=== PATIENT | male | born 1960 | race Caucasian/White ===

== ENCOUNTER → 2016-03-28 | Outpatient (CLI) | payer BC ==
[~2016-03-28] MED LIST: AMLO10TA2 PO; ASPI81TA85 PO; BISO5TAB5 PO; COUM2.5T11 PO; PERC5TAB6 PO
[2016-03-28 11:08] LABS: BASO % 0.6 % (0.0-1.0); EOS # 0.1 K/mm3 (0.0-0.50); EOS % 2.3 % (0.0-3.0); LARGE UNSTAINED CELL # 0.1 K/mm3 (0.0-0.4); LARGE UNSTAINED CELL % 2.3 % (0.0-4.0); LYMPH # 1.7 K/mm3 (1.5-4.5); MEAN CORPUSCULAR HEMOGLOBIN 30.2 pg (27.0-33.0); MEAN CORPUSCULAR HGB CONC 33.8 g/dl (32.0-36.5); MEAN CORPUSCULAR VOLUME 89.4 fl (80.0-96.0); MONO # 0.3 K/mm3 (0.0-0.8); MONO % 6.4 % (0.0-5.0); NEUTROPHILS # 3.2 K/mm3 (1.8-7.7); NEUTROPHILS % 59.4 % (36.0-66.0); PLATELET COUNT, AUTOMATED 190 k/mm3 (150-450); RED CELL DISTRIBUTION WIDTH 14.3 % (11.5-14.5); WHITE BLOOD COUNT 5.3 K/mm3 (4.0-10.0)
[2016-03-28 11:30] LABS: ALBUMIN 3.9 GM/DL (3.2-5.2); ALBUMIN/GLOBULIN RATIO 1.05 (1.00-1.93); ALKALINE PHOSPHATASE 69 U/L (45-117); ALT/SGPT 35 U/L (12-78); ANION GAP 5 MEQ/L (8-16); AST/SGOT 29 U/L (15-37); BILIRUBIN,TOTAL 0.3 MG/DL (0.2-1.0); BLOOD UREA NITROGEN 11 MG/DL (7-18); CALCIUM LEVEL 8.8 MG/DL (8.5-10.1); CARBON DIOXIDE LEVEL 31 MEQ/L (21-32); CHLORIDE LEVEL 107 MEQ/L (98-107); CHOLESTEROL LEVEL 192 MG/DL (<200); CREATININE FOR GFR 1.12 MG/DL (0.70-1.30); GLOMERULAR FILTRATION RATE > 60.0 (>56); GLUCOSE, FASTING 86 MG/DL (70-105); POTASSIUM SERUM 4.4 MEQ/L (3.5-5.1); SODIUM LEVEL 143 MEQ/L (136-145); TOTAL PROTEIN 7.6 GM/DL (6.4-8.2); TRIGLYCERIDES LEVEL 175 MG/DL (<150)
== END ==
LOC: M LAB 10:52
PROVIDERS: ATTEND Family Medicine
DX: I10 Essential (primary) hypertension (principal)

== ENCOUNTER 2017-09-21 06:50 | Day surgery (SDC) | payer BC ==
[2017-09-21] MEDS ORDERED: SIMETHICONE 40MG/0.6ML DROPS 30ML As Ordered (06:56)
[2017-09-21] MEDS ORDERED: PROPOFOL 200 MG/20 ML VIAL As Ordered ×3 (07:05→08:16)
[2017-09-21] MEDS ORDERED: LIDOCAINE 2% INJ 100 MG/5 ML SDV (FOR ANES.) As Ordered (07:05)
[2017-09-21] MEDS: LR 1,000 ML IV (07:06)
== END 2017-09-21 09:00 | disposition home or self-care (01) ==
LOC: M OPP 06:50
DX: Z12.11 Encounter for screening for malignant neoplasm of colon (principal); D12.0 Benign neoplasm of cecum; D12.4 Benign neoplasm of descending colon; D17.5 Benign lipomatous neoplasm of intra-abdominal organs; K57.30 Diverticulosis of large intestine without perforation or abscess without bleeding; K21.0 Gastro-esophageal reflux disease with esophagitis; K44.9 Diaphragmatic hernia without obstruction or gangrene; M12.9 Arthropathy, unspecified; Z91.89 Other specified personal risk factors, not elsewhere classified; Z96.652 Presence of left artificial knee joint
CPT/HCPCS: 45385

== ENCOUNTER 2017-11-02 06:41 | Day surgery (SDC) | payer BC ==
[2017-11-02] MEDS ORDERED: LIDOCAINE 2% INJ 100 MG/5 ML SYRINGE As Ordered (07:09)
[2017-11-02] MEDS ORDERED: PROPOFOL 200 MG/20 ML VIAL As Ordered ×3 (07:09→07:46)
[2017-11-02] MEDS ORDERED: fentaNYL 100 MCG/2 ML INJECTION (J3010) As Ordered (07:09)
[2017-11-02] MEDS: NS 1,000 ML IV (07:16)
== END 2017-11-02 08:25 | disposition home or self-care (01) ==
LOC: M OPP 06:41
DX: K21.0 Gastro-esophageal reflux disease with esophagitis (principal); K22.2 Esophageal obstruction; K22.8 Other specified diseases of esophagus; K44.9 Diaphragmatic hernia without obstruction or gangrene; K25.9 Gastric ulcer, unspecified as acute or chronic, without hemorrhage or perforation; R12 Heartburn; M19.90 Unspecified osteoarthritis, unspecified site; Z96.642 Presence of left artificial hip joint; Z79.899 Other long term (current) drug therapy; Z87.891 Personal history of nicotine dependence; Z80.1 Family history of malignant neoplasm of trachea, bronchus and lung; Z80.0 Family history of malignant neoplasm of digestive organs
CPT/HCPCS: 43235

== ENCOUNTER → 2018-04-04 | Outpatient (CLI) | payer BC ==
[~2018-04-04] MED LIST changes: -AMLO10TA2 PO; +AMLO10TA5 PO; -COUM2.5T11 PO; +COUM2.5T17 PO; +OMEP40CA2 PO; +PERC5TAB12 PO; -PERC5TAB6 PO; +SUCR1SUS PO
--- NOTE | 2018-04-04 14:09 | REP ---
Chest two views HISTORY: Cough Comparison: 10/25/2015 Parenchymal density is present in the left lower lobe consistent with an infiltrate. The right lung is clear. The heart is normal in size. The pulmonary vasculature is normal in appearance. The bony structure is intact. IMPRESSION: Left lower lobe infiltrate. Electronically Signed by Andres Lamas MD 04/04/2018 01:59 P
== END ==
LOC: M SMT 13:40
PROVIDERS: ATTEND Family Medicine
DX: R91.8 Other nonspecific abnormal finding of lung field (principal); R05 Cough

== ENCOUNTER 2018-04-25 09:38 | Inpatient (IN) | payer BC ==
[~2018-04-25] VITALS: Ht 180.3 cm; Wt 89.2 kg
[2018-04-25] VITALS (13 sets, daily range): BP systolic 106–154; BP diastolic 56–91
[2018-04-25] MEDS ORDERED: ALEV220C2 PO (09:48)
[2018-04-25] MEDS ORDERED: ASPI1TAB PO (09:48)
[2018-04-25] MEDS ORDERED: LEVO750T13 PO (09:48)
[2018-04-25] MEDS ORDERED: NS 2,860 ML in APPROPRIATE DILUENT 1 EA IV ONE (10:30)
[2018-04-25] MEDS ORDERED: PIPERACILLIN/TAZOBACTAM SOD 3.375 GM in D5W MINI-BAG PLUS 50 ML IV ONE (10:30)
--- NOTE | 2018-04-25 10:32 | REP ---
Chest x-ray: Two views. History: Dyspnea and cough. Comparison chest x-ray: April 04, 2018 and October 25, 2015. The March study showed left lower lobe infiltrate. Findings: Today's exam demonstrates extensive opacification of the left hemithorax due to a large left pleural effusion compressing the left lung. There is an air-fluid level near the apex posteriorly which may be parenchymal or pleural. The right lung is clear. Heart is not enlarged. Impression: Large left pleural effusion compressing the left lung and causing extensive opacification in the left hemithorax. This is a significant change from April 11, [address] study of the chest with IV contrast may provide additional information. Electronically Signed by Spencer Cardenas MD 04/25/2018 12:48 P
[2018-04-25 10:36] LABS: BASO # 0.1 10^3/uL (0.0-0.2); BASO % 0.4 % (0.0-1.0); EOS # 0.1 10^3/uL (0.0-0.50); EOS % 0.3 % (0.0-3.0); HEMATOCRIT 40.6 % (42.0-52.0); HEMOGLOBIN 12.6 g/dl (13.5-17.5); LYMPH # 1.3 10^3/uL (1.5-4.5); LYMPH % 6.4 % (24.0-44.0); MEAN CORPUSCULAR HEMOGLOBIN 27.5 pg (27.0-33.0); MEAN CORPUSCULAR VOLUME 88.5 fl (80.0-96.0); MONO # 1.2 10^3/uL (0.0-0.8); MONO % 5.9 % (0.0-5.0); NEUTROPHILS # 16.7 10^3/uL (1.8-7.7); NEUTROPHILS % 83.1 % (36.0-66.0); PLATELET COUNT, AUTOMATED 536 10^3/uL (150-450); RED BLOOD COUNT 4.59 10^6/uL (4.30-6.10)
[2018-04-25 10:49] LABS: ABG BASE EXCESS 2.5 (-2.0-2.0); ABG HCO3 26.1 MEQ/L (22.0-26.0); ABG O2 SATURATION 98.1 % (95.0-99.0); ABG PARTIAL PRESSURE CO2 36.9 mmHg (35.0-45.0); ABG PARTIAL PRESSURE O2 99.7 mmHg (75.0-100.0); ABG STANDARD HCO3 26.7 MEQ/L (22.0-26.0); ABG TOTAL CO2 27.3 MEQ/L (22.0-29.0); ABG pH (ARTERIAL) 7.468 UNITS (7.350-7.450)
[2018-04-25] MEDS ORDERED: OMEP40CA2 PO (10:52)
[2018-04-25 11:04] LABS: INFLUENZA A AMPLIFICATION NEGATIVE (NEGATIVE); INFLUENZA B AMPLIFICATION NEGATIVE (NEGATIVE)
[2018-04-25 11:45] LABS: INR 1.41; PROTHROMBIN TIME 17.5 SECONDS (12.1-14.4)
[2018-04-25 11:46] LABS: PARTIAL THROMBOPLASTIN TIME 44.4 SECONDS (25.4-37.6)
[2018-04-25 12:15] LABS: ALBUMIN 1.6 GM/DL (3.2-5.2); ALT/SGPT 31 U/L (12-78); AMYLASE 31 U/L (25-115); BILIRUBIN,DIRECT 0.3 MG/DL (0.0-0.2); BILIRUBIN,TOTAL 0.5 MG/DL (0.2-1.0); BLOOD UREA NITROGEN 17 MG/DL (7-18); CALCIUM LEVEL 8.1 MG/DL (8.5-10.1); CARBON DIOXIDE LEVEL 29 MEQ/L (21-32); CHLORIDE LEVEL 102 MEQ/L (98-107); CREATININE FOR GFR 0.97 MG/DL (0.70-1.30); GLOMERULAR FILTRATION RATE > 60.0 (>56); GLUCOSE, FASTING 98 MG/DL (70-100); POTASSIUM SERUM 4.3 MEQ/L (3.5-5.1); SODIUM LEVEL 141 MEQ/L (136-145); TOTAL PROTEIN 6.6 GM/DL (6.4-8.2); TROPONIN I < 0.02 NG/ML (< 0.10)
[2018-04-25 12:16] LABS: CK-MB VALUE MASS < 1.0 NG/ML (<3.6); CPK CREATINE PHOSPHOKINASE 17 U/L (39-308); MB/CK RELATIVE INDEX 5.88 (< OR =4)
[2018-04-25] MEDS ORDERED: ISOVUE-370 76% 100ML VIAL (Q9967) As Ordered ONE (12:19)
[2018-04-25] MEDS ORDERED: MORPHINE 4 MG/ML 1ML VIAL/SYRINGE (J2270) IV PRN (13:00)
[2018-04-25] MEDS ORDERED: BISACODYL 5 MG TAB PO PRN (13:00)
[2018-04-25] MEDS ORDERED: BISACODYL 10 MG SUPP PR PRN (13:00)
[2018-04-25] MEDS ORDERED: FLUMAZENIL 0.5 MG/5 ML VIAL IV STA (13:26)
[2018-04-25] MEDS ORDERED: LIDOCAINE 1% MDV 20ML VIAL SC SCH (13:30)
[2018-04-25] MEDS ORDERED: MIDAZOLAM INJ 2 MG/2 ML VIAL (J2250) IV ONE ×3 (13:30→17:00)
--- NOTE | 2018-04-25 13:43 | REP ---
CT ANGIOGRAM CHEST: TECHNIQUE: Axial contrast enhanced images from the thoracic inlet to the upper abdomen using 100 mL Isovue 370 intravenous contrast material with multiplanar reformations. There is no CT evidence of pulmonary embolism. There is no thoracic aortic aneurysm or dissection. The heart is not significantly enlarged. There is a huge air and fluid collection in the left pleural space consistent with a huge left-sided empyema. There is adjacent compressive atelectasis of the left lung. Right lung demonstrates no infiltrate or pleural effusion. There is a small amount of left pericardial fluid. There are several small lymph nodes in the AP window. No axillary adenopathy is seen. Visualized upper abdominal structures are unremarkable. IMPRESSION: Huge left empyema with adjacent compressive left lung atelectasis. No CT evidence of pulmonary embolism. Small amount of left pericardial fluid. Electronically Signed by Rizwan Falk MD 04/26/2018 10:08 A
--- NOTE | 2018-04-25 13:57 | PHACANCOPD ---
PHARMACY VANCOMYCIN DOSING Pt Demographics Demographics Patient Age:58 , Weight:95.450 , Gender: male Adjusted Body Weight Date: 04/25/18, Adjusted Body Weight: Kg Events Past 24 Hours Events Past 24 Hours: YES: Elevation in WBC Vancomycin Vancomycin indication: FAILED OUTPT ABX X 2, HAS PNEUMONIA EMPYEMA Vancomycin Target Ranges: 15-20 mcg/ml Vancomycin Load Y/N: Yes Load Dose Date Time Vancomycin Load Dose: 2g Date: 04/25/18 Time: 1400 Vancomycin Dose Date: 04/25/18. Current Vancomycin Dose: [1g IV Q8H] Intermittent Dosing?: No Labs Labs Item Value Date Time White Blood Count 20.0 10^3/uL H 04/25/18 1024 Creatinine 0.97 MG/DL 04/25/18 1121 Glomerular Filtration Rate > 60.0 04/25/18 1121 Lactic Acid Level 2.5 MMOL/L *H 04/25/18 1025 C-Reactive Protein, Quantitative 29.90 MG/DL H 04/25/18 1121 Micro Microbiology 04/25/18 Blood Culture, Received Pending 04/25/18 Blood Culture, Received Pending 04/25/18 Blood Culture, Received Pending 04/25/18 Gram Stain, Received Pending 04/25/18 Sputum Culture, Received Pending Creatinine Clearance Date:04/25/18. Est Creatinine Clearance: [~88ml/min]. Pending Labs Vancomycin trough level scheduled 04/26/18 @1300 Assessment and Plan Maintaining Current Dose?: Yes Reason for dose change: No Dose Change Pharmacist Note Pharmacist Note Date: 04/25/18. Pharmacist note: Day #1 empiric vancomycin therapy initiated with a 2g loading dose followed by a maintenance regimen of 1g IV Q8H for the treatment of pneumonia/empyema - aiming for a goal trough of 15-20mcg/ml. The patient is s/p outpatient antibiotic therapy with oral levaquin for the treatment of pneumonia with no improvement. WBC, LA, and CRP are all elevated. T he patient is currently afebrile. CXR today shows "Large left pleural effusion compressing the left lung and causing extensive opacification in the left hemithorax. This is a significant change from April 11, 2018 prior study." Blood and sputum cultures are pending. MRSA screen pending. The patient has no PMH of MRSA or vanco use here at [facility]. H&P is currently pending. A vancomycin trough has been scheduled to be drawn tomorrow, 04/26/18, at 1300 prior to the 4th dose. We will continue to monitor and will make dose adjustments if needed. JOELLEN GRIMALDO PHARMACY Apr 25, 2018 13:57
[2018-04-25] MEDS ORDERED: MIDAZOLAM INJ 2 MG/2 ML VIAL (J2250) As Ordered ONE ×2 (14:31→14:32)
[2018-04-25] MEDS ORDERED: FLUMAZENIL 0.5 MG/5 ML VIAL As Ordered ONE (14:31)
[2018-04-25] MEDS ORDERED: LIDOCAINE 1% MDV 20ML VIAL As Ordered ONE (14:32)
--- NOTE | 2018-04-25 14:52 | HPE ---
DATE OF ADMISSION: 04/25/2018 CHIEF COMPLAINT: Shortness of breath and fevers. HISTORY OF PRESENT ILLNESS: Mr. King is a 58-year-old male who presented to the emergency department after recently being treated for pneumonia with continued shortness of breath. The patient states that he feels that he has had respiratory problems since around Su time with a cough that has been going for over a month. He went to his primary care provider in March and had a chest x-ray, which showed a left lower lobe infiltrate. The patient was treated for pneumonia with doxycycline. He states he initially started to feel better on the doxycycline but then felt that he was improving any further. After he finished a course of doxycycline, he returned to his primary care provider and was placed on Levaquin about a week ago. He states he has not felt any better on the Levaquin. He has had fevers as recently as last week, continues to have shortness of breath and cough that he states is productive. He has been bringing up some purulent sputum at times. He has noted fevers but denies shaking chills. He denies any unexplained weight loss. He states that he has not been eating. He does not feel hungry. He denies any other significant gastrointestinal symptoms. Denies any nausea, vomiting, diarrhea or constipation. Denies any blood in stool. The patient denies any previous history of respiratory issues. Denies any recurrent pneumonia or bronchitis issues. He is a former smoker who smoked a pack a day for about 40 years and quit about 3 years ago. The patient describes overall health as good. He is on omeprazole for gastroesophageal reflux disease and otherwise does not take any other medications except for a baby aspirin. He states he has been followed for elevated blood pressure of the past but is not on any blood pressure medications and currently his blood pressure is good. 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 He denies any other exposures to other people with respiratory issues. He denies any history of tuberculosis. REVIEW OF SYSTEMS The patient has noted some fevers but denies shaking chills. Denies unexplained weight loss. HEENT: The patient denies headaches or dizziness. Denies sore throats or epistaxis. The patient denies any neck pain. CARDIOVASCULAR: The patient denies chest pain or palpitations. Denies any history of coronary artery disease. PULMONARY: See above. GASTROINTESTINAL The patient denies nausea, vomiting, diarrhea, constipation, abdominal pain, hematemesis, blood in stool. GENITOURINARY: The patient denies any urinary symptoms. ENDOCRINE: The patient denies history of diabetes or thyroid problems. MUSCULOSKELETAL: The patient denies any upper or lower extremity weakness or tremors. SKIN: Patient denies any rashes. PAST MEDICAL HISTORY: 1. Reflux. 2. History of elevated blood pressure. 3. History of smoking, quit 3 years ago. 4. History of left total hip replacement. 5. History of right rotator cuff repair. SOCIAL HISTORY: The patient lives with his . He works as a car hauler. The patient has a history of smoking. He smoked a pack a day for 40 years quitting 3 years ago. He also chewed tobacco and quit that 3 years ago as well. The patient has an occasional alcoholic beverage. The patient denies any illicit drug use. FAMILY HISTORY The patient's mother of lung cancer. The patient's father of stomach cancer. MEDICATIONS: - aspirin 81 mg - omeprazole ALLERGIES: NO KNOWN DRUG ALLERGIES. PHYSICAL EXAMINATION Vitals: Blood pressure is 124/78, heart rate 86, temperature 96.9, oxygen saturation 93%, respiratory rate 20. GENERAL: The patient is alert and oriented times three. He is speaking in complete sentences. He is coughing throughout the exam. HEENT: Head is normocephalic, atraumatic. Moist mucous membranes. Neck is supple. No cervical lymphadenopathy. No jugular venous distention (JVD). Trachea is midline. PULMONARY: Diminished breath sounds over the left lower lung with E/A egophony at the left base and decreased tactile fremitus on the left. There is dullness to percussion on the left to about two-thirds of the way up. HEART: Regular rate and rhythm. S1, S2 no murmurs. ABDOMEN: Positive bowel sounds, soft, nontender. No rebound or guarding. EXTREMITIES : No clubbing, cyanosis or edema. SKIN: Skin is warm and dry. MUSCULOSKELETAL: No unilateral weakness. No lower extremity edema. Electrocardiogram (EKG) shows a right bundle block branch block, looks similar to prior EKG from 2016. LABORATORY DATA: ABG pH is 7.468, pCO2 is 36.9, pO2 is 99.7, HCO3 is 26.1. WBC 20.0, hemoglobin 12.6, hematocrit 40.6, platelets 536, PT 17.5, INR 1.41, PTT 4.4. Sodium 141, potassium 4.3, chloride 102, carbon dioxide 29, BUN 17, creatinine 0.97, glucose 98, calcium 8.1, total bili 0.5, direct bili 0.3, AST 25, ALT 31, alkaline phosphatase 174, CK 17, CK-MB less than 1.0, CK-MB relative index 5.88. Troponin I less than 0.02, CRP 29.90, total protein 6.6, albumin 1.6, amylase 31, influenza A and B were negative. Sputum culture pending. Blood cultures times two pending. Chest x-ray shows a large left pleural effusion with extensive opacification of the left lung. Chest x-ray from 04/04/2018 was also reviewed and showed a left lower lobe infiltrate. Chest CT from today shows very large pleural effusion of left lung that appears loculated to the left upper lobe with a rind. There is a possible air-fluid level. ASSESSMENT/PLAN: 1. Pleural effusion. Most likely empyema, malignancy also cannot be ruled out at present time, although the patient's symptoms and the CT findings do suggest infection. Chest tube will be placed. Dr. Elkins has been consulted and will place a chest tube. Judging from the chest CT, which does show a rind around the pleural effusion, it is likely that the effusion has been there for sometime. The patient may be left with chronic scarring, even with drainage. The patient is placed on the Zosyn and vancomycin because he has failed two outpatient antibiotics with doxycycline and Levaquin. 2. Sepsis. Most likely secondary to an empyema and a prior pneumonia. The patient had been on and failed two different outpatient antibiotics, including doxycycline and Levaquin. Therefore he will be started on IV Zosyn and IV vancomycin. Sputum and blood cultures are currently pending. 3. Gastroesophageal reflux disease (GERD). The patient will be placed on GI prophylaxis with Protonix. He is on omeprazole as an outpatient. 4. Deep vein thrombosis (DVT) prophylaxis. We will order TEDs and sequential compression device (SCD). Plan will be to start heparin after chest tube is placed.
[2018-04-25] MEDS: NS 1,000 ML IV SCH ×3 (14:59→17:54)
[2018-04-25] MEDS ORDERED: VANCOMYCIN HCL 1,000 MG, VIAL MATE ADAPTER 1 EACH in D5W 250 ML IV ONE (15:00)
[2018-04-25] MEDS ORDERED: KETOROLAC 30 MG/ML VIAL (J1885) As Ordered ONE (15:19)
[2018-04-25] MEDS ORDERED: KETOROLAC 30 MG/ML VIAL (J1885) IV ONE (15:45)
[2018-04-25] MEDS: VANCOMYCIN HCL 1,000 MG, VIAL MATE ADAPTER 1 EACH in D5W 250 ML IV SCH ×2 (16:04→21:54)
[2018-04-25 16:16] LABS: LDH LACTATE DEHYDROGENASE 140 U/L (87-241)
[2018-04-25 16:18] LABS: PH BODY FLUID 6.985 UNITS (NOT ESTABLISHED); SOURCE, BODY FLUID pH PLEURAL
[2018-04-25 16:19] LABS: APPEARANCE, BODY FLUID HAZY (CLEAR); PLEURAL FL COLOR YELLOW (COLORLESS); SOURCE, BODY FLUID PLEURAL
[2018-04-25 16:45] LABS: SOURCE, BODY FLUID ALBUMIN PLEURAL; SOURCE, BODY FLUID TOT PROTEIN PLEURAL; TOTAL PROTEIN, BODY FLUID 4.9 G/DL (NOT ESTABLISHED)
--- NOTE | 2018-04-25 16:47 | CR ---
DATE OF CONSULTATION: 04/25/2018 The patient is seen at the request of Dr. Barrett for a pleural effusion and probable empyema. HISTORY OF THE PRESENT ILLNESS: The patient is a 58-year-old white male whose story starts about 3 weeks ago when he started to develop a cough and sputum production. He was seen by his primary care doctor who placed him on doxycycline. Approximately 10 days later, he still had his cough with sputum production and started to develop chest discomfort in the left lateral chest. 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 He has become more progressively short of breath and has experienced more chest pain. Chest x-ray was taken today which then showed a left dense opacity. His temperature was approximately 101 about 3 days ago. He has had a decreased appetite. He thinks he has lost maybe a few pounds of weight just because of his decreased appetite over the past 3 weeks. There is no dysphagia. He has also brought up what sounds to be pink blood-tinged sputum occasionally but mostly greenish to yellow. PAST MEDICAL HISTORY: Gastroesophageal reflux disease. PAST SURGICAL HISTORY: Hip replacement on the left side. Rotator cuff repair on the right side. MEDICATIONS AT HOME: - Aleve 220 mg as needed for pain every 6 hours - aspirin 81 mg daily - levofloxacin 750 mg daily - omeprazole 40 mg daily - After the course of doxycycline, the Levaquin was started. TRAVEL HISTORY: He has been to [place]. 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 No travel to the [facility]. EXPOSURES: No dogs, pets, or birds at home. No exposure to tuberculosis. HABITS: Smoked one pack per day up until 2014. He then quit. He has about two beers a week, and there are no illicit drugs. FAMILY HISTORY: Noncontributory. ALLERGIES: None. REVIEW OF SYSTEMS: CONSTITUTIONAL: See history of the present illness. EYES: Without diplopia, without amaurosis fugax, without prior jaundice. NOSE: Without epistaxis. MOUTH: Has his own teeth. RESPIRATORY: See history of the present illness. CARDIAC: See history of the present illness. No history of myocardial infarctions or intermittent claudication. No edema of his lower legs. GASTROINTESTINAL (GI): Without nausea, vomiting, diarrhea, constipation, melena, hematochezia. Without hematemesis or abdominal pain. GENITOURINARY: Without dysuria or hematuria or history of renal stones. ENDOCRINE: Without diabetes, without thyroid disease. PSYCHIATRIC: Without anxieties, depressions, or psychoses. NEUROLOGIC: Without paresthesias, paralyses or seizures. HEMATOLOGIC: Without prolonged bleeding times. PHYSICAL EXAMINATION: VITAL SIGNS: Show a temperature of 98.0 with a pulse of 93 and is sinus rhythm, respiratory rate of 20 without the use of accessory muscles who is 95% saturated on room air and whose blood pressure is 154/91. A well-developed, well-nourished white male in no acute distress. HEAD: Normocephalic. EYES: Pupils equal, round and reactive to light. Extraocular motor intact. Sclerae nonicteric. NOSE: Without deformity. MOUTH: Shows his mucous membranes to be pink and moist. Lips and commissures without lesions. There is no thrush. Teeth are in good repair. NECK: Neck is supple. There is no jugular venous distention. No subcutaneous emphysema. Trachea is midline. There is no lymphadenopathy or thyromegaly. LUNGS: Show markedly decreased breath sounds on the left side with a dull percussion note on the left side. He has full E to A egophony at the left base to the left mid lung field. Right lung shows normal vesicular sounds. CARDIAC: Cardiac exam is without murmurs, clicks, gallops or rubs. I cannot feel his point of maximum impulse (PMI). S1, S2 are normal. ABDOMEN: Soft, nontender. Bowel sounds are positive. There is no hepatomegaly. No costovertebral angle (CVA) tenderness. EXTREMITIES: Show no pretibial edema. No calf tenderness. No differential swelling of the upper extremities. SKIN: Warm, dry and perfused without cyanosis or mottling, including that of the nail beds and the knees. PULSES: Show 2+ dorsalis pedis, 2+ carotid upstrokes without bruits. NEUROLOGIC: Shows II-XII intact along with gross motor and gross sensation intact. Gait is not tested. PSYCHIATRIC: Shows him to be awake and alert, oriented times three with appropriate mood and affect and conversational. His white count is 20.0 with a hemoglobin and hematocrit of 12.6 and 40.6 respectively, and a platelet count of 536. Differential shows 83% neutrophils, 6% lymphocytes, 5% monocytes. There are no immature forms. No toxic granulations. His blood gases show a pH of 7.46, a pCO2 of 36, and a pO2 of 99 with a base excess of 2.5. Electrolytes are normal with a BUN and creatinine of 0.97 and 60. His lactic acid is 2.5. Calcium is 8.1 with a glucose of 98. AST and ALT are normal. Troponins are less than 0.02 and his albumin is 1.6. Amylase is 31. His PT/INR is 17.5 and 1.41 respectively with a PTT of 44 seconds. His chest x-ray today shows complete opacification of the left lower hemithorax. Lateral film shows fluid two-thirds of the way up the chest, mostly posteriorly. The right lung looks clear without infiltrates with a sharp costophrenic angle. CT angio of his chest confirms a large amount of fluid in the left chest. It looks heterogeneous and is probably pus. There is right lower lobe lung compression. There may be a loculation in the apex of the cupola. I do not see lymphadenopathy. There is no pulmonary embolism. Right adrenal has a normal configuration as does the left adrenal. Liver is without lesions. I see some emphysematous changes but very few in the upper lobes. I do not see bronchiectasis. IMPRESSION: 1. Probable right lower lobe pneumonia. 2. Probable empyema. 3. Gastroesophageal reflux disease. PLAN AND DISCUSSION: I will place a chest tube and drain him. Hopefully we will be able to drain the majority of his fluid, although he may need a TPA pleurolysis to get the rest of it. I will take a post-tube chest x-ray to see if the lung expands to the chest wall. I have a sinking feeling that it might not, and it might be encased in a rind. If it is and does not expand by tomorrow, I will do a TPA pleurolysis. Will send the results off for the requisite hematologies, cytologies, bacteriologies, and chemistries.
--- NOTE | 2018-04-25 16:50 | REP ---
Portable chest x-ray: Single view: History: Chest tube insertion. Comparison study is from earlier this date. Findings: Left chest tube has been inserted in the left base. There is incomplete reexpansion of the left lower lobe. There is lateral pleural air collection adjacent to the chest tube insertion site. Pleural thickening is noted here. Some pleural thickening is seen along the superolateral left thorax as well. Right lung remains clear. Impression: Incomplete reinflation of the left lung post left chest tube. Decreased left pleural effusion. Small left pneumothorax. Electronically Signed by Spencer Cardenas MD 04/25/2018 04:53 P
[2018-04-25] MEDS ORDERED: LIDOCAINE 1% MDV 20ML VIAL SC ONE ×2 (17:00)
[2018-04-25 17:09] LABS: AMYLASE, BODY FLUID 24 U/L (NOT ESTABLISHED); CHOLESTEROL, BODY FLUID < 50 MG/DL (NOT ESTABLISHED); LDH, BODY FLUID 6669 U/L (NOT ESTABLISHED); SOURCE, BODY FLUID AMYLASE PLEURAL; SOURCE, BODY FLUID CHOL PLEURAL; SOURCE, BODY FLUID GLUCOSE PLEURAL; SOURCE, BODY FLUID LDH PLEURAL; SOURCE, BODY FLUID TRIG PLEURAL; TRIGLYCERIDE, BODY FLUID 53 MG/DL (NOT ESTABLISHED)
[2018-04-25] MEDS: PERCOCET 5MG/325MG TAB PO PRN (17:28)
[2018-04-25] MEDS ORDERED: NS 1,000 ML IV ONE (18:00)
[2018-04-25] MEDS: PIPERACILLIN/TAZOBACTAM SOD 3.375 GM in D5W MINI-BAG PLUS 50 ML IV SCH (18:36)
--- NOTE | 2018-04-25 19:46 | ECGEPIP ---
Stationary ECG Study [facility] - ED Test Date: 2018-04-25 Pat Name: LITO GAVIN Department: Room: - Gender: M Poultry Dresser: : 1960 Requested By: Cata Crow Order Number: [id number] Reading MD: Cata Crow Measurements Intervals [place] Rate: 92 P: 30 [place]: 136 QRS: -57 QRSD: 144 T: 78 QT: 383 QTc: 475 Interpretive Statements SINUS RHYTHM RIGHT BUNDLE BRANCH BLOCK LAD LEFT ANTERIOR FASCICULAR BLOCK POSSIBLE SEPTAL MYOCARDIAL INFARCTION, OF INDETERMINATE AGE CW 10/25/[address] T WAVE CHANGES Electronically Signed On 04-25-2018 19:46:19 EST by Cata Crow
[2018-04-26] VITALS: BP 111/65
[2018-04-26] MEDS: PIPERACILLIN/TAZOBACTAM SOD 3.375 GM in D5W MINI-BAG PLUS 50 ML IV SCH ×4 (00:30→18:33)
[2018-04-26] MEDS: PERCOCET 5MG/325MG TAB PO PRN ×4 (00:31→21:21)
[2018-04-26 04:00] VITALS: BP 120/71
[2018-04-26 04:54] LABS: HEMATOCRIT 34.9 % (42.0-52.0); MEAN CORPUSCULAR HEMOGLOBIN 27.4 pg (27.0-33.0); MEAN CORPUSCULAR HGB CONC 30.1 g/dl (32.0-36.5); MEAN CORPUSCULAR VOLUME 91.1 fl (80.0-96.0); RED BLOOD COUNT 3.83 10^6/uL (4.30-6.10); WHITE BLOOD COUNT 14.9 10^3/uL (4.0-10.0)
[2018-04-26 04:59] LABS: HEMOGLOBIN 10.5 g/dl (13.5-17.5); PLATELET COUNT, AUTOMATED 362 10^3/uL (150-450)
[2018-04-26 05:18] LABS: BLOOD UREA NITROGEN 16 MG/DL (7-18); CALCIUM LEVEL 7.6 MG/DL (8.5-10.1); CARBON DIOXIDE LEVEL 27 MEQ/L (21-32); CHLORIDE LEVEL 104 MEQ/L (98-107); CREATININE FOR GFR 0.93 MG/DL (0.70-1.30); GLOMERULAR FILTRATION RATE > 60.0 (>56); GLUCOSE, FASTING 103 MG/DL (70-100); POTASSIUM SERUM 4.1 MEQ/L (3.5-5.1); SODIUM LEVEL 137 MEQ/L (136-145)
[2018-04-26] MEDS: VANCOMYCIN HCL 1,000 MG, VIAL MATE ADAPTER 1 EACH in D5W 250 ML IV SCH ×3 (05:51→21:19)
[2018-04-26 08:00] VITALS: BP 116/74
--- NOTE | 2018-04-26 08:27 | REP ---
A PA and lateral chest: Comparisons are the PA and lateral chest dated 04/25/2018 at 10:05 a.m. and the portable chest dated 04/25/2018 at 03:49 p.m. There is a left thoracotomy tube, unchanged from the comparison portable chest. There is a pneumothorax along the left lateral chest wall, unchanged, possibly loculated. There is focal increased radiodensity inferiorly in the left lung, possibly atelectasis. The remainder of the left lung is diffusely mildly opacified, possibly diffuse atelectasis. The right lung is clear. Cardiac size normal. The ever, mediastinum, skeletal structures are unremarkable. Impression: No significant change from the portable chest of 04/25 2018 at 03:49 p.m.. Electronically Signed by Rizwan Doty MD 04/26/2018 08:18 A
[2018-04-26] MEDS ORDERED: ALTEPLASE 2 MG/2 ML VIAL (J2997 PER 1MG) XX ONE (08:30)
[2018-04-26] MEDS: ENOXAPARIN 40 MG/0.4 ML SYRINGE (J1650) SC SCH (08:45)
[2018-04-26] MEDS ORDERED: FLUBLOK(EGG FREE)(QUAD)INFLUENZA VACC 0.5ML SYRINGE (90682)18YRS&OLDER IM ONE (09:00)
--- NOTE | 2018-04-26 09:20 | REP ---
CT CHEST WITHOUT CONTRAST: HISTORY: Evaluate status empyema. Comparison is made with chest CT study obtained before chest tube drainage on April 25, 2018. CT FINDINGS: A left chest tube is seen in place posteriorly. The previously noted empyema cavity has been largely evacuated. There is some moderate amount of a multiloculated air, a small quantity of fluid, and fairly extensive visceral and parietal pleural thickening seen throughout the left pleural space. There is some consolidation with air bronchograms in the left lower lobe anterolaterally and to a lesser extent in the lingula. There is fissural thickening along the major fissure. An interstitial infiltrate is seen in the left upper lobe superiorly. There is a small pericardial effusion. This has increased somewhat from the CT study April 25, 2018. There are scattered normal-sized mediastinal lymph nodes. The right lung is clear. IMPRESSION: Left empyema cavity largely evacuated. Some pleural air and extensive visceral and parietal pleural thickening seen. Areas of consolidation left lower lobe and left upper lobe. Pericardial effusion slightly increased. Electronically Signed by Spencer Cardenas MD 04/26/2018 11:07 A
--- NOTE | 2018-04-26 09:31 | RO ---
DATE OF PROCEDURE: 04/25/2018 PREPROCEDURE DIAGNOSIS: Left pleural effusion. POSTPROCEDURE DIAGNOSIS: Empyema. PROCEDURE: Insertion of left lateral chest tube. SURGEON: Ambrose Elkins MD COLD HEADER OPERATOR: ANESTHESIA: FINDINGS: The chest drained 2500 mL of cloudy opaque fluid. It was sent for cultures, hematologies, cytologies, and chemistries. DESCRIPTION OF PROCEDURE: Under satisfactory moderate sedation achieved with 4 mg of Versed, the patient was prepped and draped in the usual sterile fashion. Incision was made in the midclavicular line at approximately the eighth intercostal space. A tunnel was created in the chest without difficulty and a #24 chest tube placed without difficulty. The above findings were noted. The chest tube was secured to the chest wall with #2 [place] suture. The patient tolerated the procedure well, and a chest x-ray is pending.
--- NOTE | 2018-04-26 11:31 | CCN ---
DATE: 04/26/2018 Mr. King seen in PCU. He is sitting up in bed with a chest tube in place. He states since the chest tube was placed he does feel better and he states he is feeling better. He states his appetite has been a little bit better as well. He denies fevers or chills. His white count is improving today and is 14.9, which is decreased from 20 yesterday. He is on Zosyn and vancomycin. PHYSICAL EXAMINATION: VITALS: Temperature is 96.4, pulse 71, respiratory rate 20, blood pressure is 116/74, pulse ox 93%. GENERAL: The patient is alert and oriented times three. He speaks in complete sentences. HEENT: Head is normocephalic, atraumatic. Moist mucous membranes. NECK: Neck is supple. No cervical lymphadenopathy. No JVD. Trachea is midline. CARDIAC: Regular rate and rhythm. S1-S2, no murmurs. PULMONARY: Dullness to percussion over the left lower lobe going up about nursing home on the left. There is an expiratory squeak heard over the left lower lobe with some radiation throughout the chest. ABDOMEN: Soft and nontender. EXTREMITIES: No clubbing, cyanosis or edema. SKIN: Warm and dry. LABORATORY DATA: WBC 14.9, hemoglobin 10.5, hematocrit 34.9, platelets 362. Sodium is 137, potassium 4.1, chloride is 104, carbon dioxide is 27, BUN 16, creatinine 0.93, glucose 103, calcium 7.6. Pleural fluid pH 6.985, WBC of 40,480, RBC 17, mononuclear percent 32.4, polymorphonuclear percent 67.6, glucose less than 1, total protein is 4.9, albumin 1.5, LDH 6669, amylase 24, cholesterol less than 50, triglycerides 53, color yellow, appearance hazy. IMAGING STUDIES: Chest CT from today 04/26/2018 shows chest tube in place on the left. There is a left empyema with some pleural air trapping and visceral and parietal pleural thickening. There is areas of consolidation in the left lower lobe and left upper lobes. ASSESSMENT/PLAN: 1. Empyema. The patient has empyema. Dr. Elkins is following and managing the patient's chest tube that he placed to yesterday. Chest CT does show that the lung is not fully expanded therefore Dr. Elkins plans on TPA pleurolysis. The patient is on antibiotics. Today is day 2 of vancomycin and Zosyn. His white count is improved on the antibiotics and after chest tube placement. Continue antibiotics. Pleural fluid cultures are pending.
[2018-04-26 12:00] VITALS: BP 116/64
--- NOTE | 2018-04-26 14:58 | PHACANCOPD ---
PHARMACY VANCOMYCIN DOSING Pt Demographics Demographics Patient Age:58 , Weight:98.200 , Gender: male Adjusted Body Weight Date: 04/25/18, Adjusted Body Weight: Kg Vancomycin Vancomycin indication: FAILED OUTPT ABX X 2, HAS PNEUMONIA EMPYEMA Vancomycin Target Ranges: 15-20 mcg/ml Vancomycin Load Y/N: Yes Load Dose Date Time Vancomycin Load Dose: 2g Date: 04/25/18 Time: 1400 Vancomycin Dose Date: 04/25/18. Current Vancomycin Dose: [1g IV Q8H] Intermittent Dosing?: No Labs Micro Microbiology 04/25/18 Blood Culture - Preliminary, Resulted No growth after 24 hours . All specim... 04/25/18 Blood Culture - Preliminary, Resulted No growth after 24 hours . All specim... 04/25/18 Blood Culture - Preliminary, Resulted No growth after 24 hours . All specim... 04/25/18 Acid Fast Stain, Received Pending 04/25/18 Mycobacterial Culture, Received Pending 04/25/18 Fungal Smear, Received Pending 04/25/18 Fungal Culture, Received Pending 04/25/18 Gram Stain - Final, Resulted 04/25/18 Anaerobic Culture, Resulted Pending 04/25/18 Body Fluid Culture, Received Pending 04/25/18 MRSA Screen, Received Pending 04/25/18 Gram Stain - Final, Resulted 04/25/18 Sputum Culture, Resulted Pending Creatinine Clearance Date:04/25/18. Est Creatinine Clearance: [~88ml/min]. Pending Labs Vancomycin trough level scheduled 04/26/18 @1300 Assessment and Plan Maintaining Current Dose?: Yes Reason for dose change: No Dose Change Pharmacist Note Pharmacist Note 04/26/18: Day #2 vancomycin therapy. Trough level today resulted therapeutic at 17.3mcg/ml. Scr remains stable at 0.93 today from 0.97 yesterday, as does BUN. We will maintain the patient on his current regimen of 1g IV Q8H for the tr eatment of empyema. We will continue to monitor and schedule further levels accordingly. Date: 04/25/18. Pharmacist note: Day #1 empiric vancomycin therapy initiated with a 2g loading dose followed by a maintenance regimen of 1g IV Q8H for the treatment of pneumonia/empyema - aiming for a goal trough of 15-20mcg/ml. The patient is s/p outpatient antibiotic therapy with oral levaquin for the treatment of pneumonia with no improvement. WBC, LA, and CRP are all elevated. The patient is currently afebrile. CXR today shows "Large left pleural effusion compressing the left lung and causing extensive opacification in the left hemithorax. This is a significant change from April 11, 2018 prior study." Blood and sputum cultures are pending. MRSA screen pending. The patient has no PMH of MRSA or vanco use here at [facility]. H&P is currently pending. A vancomycin trough has been scheduled to be drawn tomorrow, 04/26/18, at 1300 prior to the 4th dose. We will continue to monitor and will make dose adjustments if needed. JOELLEN GRIMALDO PHARMACY Apr 26, 2018 14:58
[2018-04-26 16:00] VITALS: BP 154/88
--- NOTE | 2018-04-26 16:04 | IPN ---
DATE: 04/26/2018 Mr. King is doing markedly better today. He can breathe and the pain is much better. The chest tube site pain is being well controlled with analgesics. His vital signs show a maximum temperature (t-max) of 98.0 with a heart rate that ranges between 71 and 78 in a sinus rhythm, respiratory rate 18 to 20 without the use of accessory muscles, who is 90 to 94% saturated on room air, and whose blood pressure is ranging between 116/74 to 120/71. His intake and output for the past 24 hours has been recorded as 5830 in and 1200 out for a positivity of 4630 mL. He has put 550 mL out of the chest tube. In the last 14 hours, he has put out 115 mL. There is no air leak. PHYSICAL EXAMINATION: LUNGS: He has coarse rhonchi in the left lower hemithorax. I also hear a succussion splash, percussion note is full to the diaphragm on both sides. Right lung shows normal vesicular sounds. CARDIAC EXAM: Without murmurs, clicks, gallops or rubs. I cannot feel his point of maximum impulse (PMI) through his obesity. S1, S2 are normal. ABDOMEN: Soft, nontender but tympanitic and distended. No costovertebral angle tenderness. Bowel sounds are positive. EXTREMITIES: Show no pretibial edema. No calf tenderness. No differential swelling of the upper extremities. SKIN: Warm, dry and perfused without cyanosis or mottling, including that of the nail beds and knees. NECK: Supple. There is no jugular venous distention. No subcutaneous emphysema. Trachea is midline. MOUTH: Shows his mucous membranes to be pink and moist. Lips and commissures without lesions. There is no thrush. EYES: Show his pupils to be equal and reactive. Extraocular motion intact. Sclerae anicteric. NEUROLOGIC: Shows II through XII intact with gross motor and gross sensation intact. Gait is not tested. PSYCHIATRIC: Shows him to be awake and alert, oriented times three with appropriate mood and affect and conversational. His white count today is down to 14.9 from 20.0 yesterday. Hemoglobin and hematocrit are 10.5 and 34.9, down from 12.6 and 40.6 yesterday secondary to hemodilution. Platelet count is 362 and stable. There is no differential on him today. His electrolytes are normal with a BUN and creatinine of 16 and 0.93. Glucose is 103 with a calcium of 7.6. Corresponding albumin yesterday was 1.6. Urinalysis did not show any leukocyte esterase. His pleural fluid analysis shows a pH of 6.98 with a glucose of less than 1 and LDH of 6669. There are 40,000 white cells, 67% of which are PNMs. This looks to be a classic empyema. His chest x-ray shows the lung from the chest wall at the left lateral lower hemithorax. It looks as though he has a rind. I did obtain another CT and indeed the lung is from the chest wall and there is a rind along the parenchyma of the lung. There is an infiltrative process consistent with a prior pneumonia. The chest tube is in excellent position in the posterior hemithorax on the left. IMPRESSION: 1. Left sided pneumonia, probably lower lobe. 2. Empyema. 3. Gastroesophageal reflux disease (GERD). PLAN/DISCUSSION: I will undertake a TPA pleurolysis today from the chest tube. Hopefully, his fibrous peel will dissolve and the lung will come back to the chest wall. The worst care scenario, I may have to take him to the operating room for decortication. LAURA
[2018-04-26 20:00] VITALS: BP 138/71
--- NOTE | 2018-04-26 20:12 | RO ---
DATE OF PROCEDURE: 04/26/2018 PREPROCEDURE DIAGNOSIS: Loculated empyema with entrapment of lung. POSTPROCEDURE DIAGNOSIS: Loculated empyema with entrapment of lung. OPERATIVE PROCEDURE: Left tissue plasminogen activator (tPA) pleurolysis. SURGEON: Ambrose Elkins MD DICTAPHONE OPERATOR: ANESTHESIA: DESCRIPTION OF PROCEDURE The patient's chest tube was disconnected from the Pleur-evac and clamped. He was prepped and draped with Betadine. 6 mg of the tPA were then instilled into the chest in 100 mL of normal saline. Chest tube was reclamped and will remain clamped for the next 4 hours. He was rolled from side to side to distribute the tPA. We will unclamp the chest tube in 4 hours.
[2018-04-27] VITALS: BP 133/76
[2018-04-27] MEDS: PIPERACILLIN/TAZOBACTAM SOD 3.375 GM in D5W MINI-BAG PLUS 50 ML IV SCH ×5 (00:48→23:41)
[2018-04-27] MEDS: PERCOCET 5MG/325MG TAB PO PRN ×3 (02:14→18:58)
[2018-04-27 04:00] VITALS: BP 137/81
[2018-04-27 05:07] LABS: HEMATOCRIT 34.3 % (42.0-52.0); HEMOGLOBIN 10.4 g/dl (13.5-17.5); MEAN CORPUSCULAR HEMOGLOBIN 26.7 pg (27.0-33.0); MEAN CORPUSCULAR HGB CONC 30.3 g/dl (32.0-36.5); MEAN CORPUSCULAR VOLUME 88.2 fl (80.0-96.0); PLATELET COUNT, AUTOMATED 387 10^3/uL (150-450); RED BLOOD COUNT 3.89 10^6/uL (4.30-6.10); WHITE BLOOD COUNT 13.7 10^3/uL (4.0-10.0)
[2018-04-27 05:26] LABS: BLOOD UREA NITROGEN 12 MG/DL (7-18); CALCIUM LEVEL 7.8 MG/DL (8.5-10.1); CARBON DIOXIDE LEVEL 27 MEQ/L (21-32); CHLORIDE LEVEL 103 MEQ/L (98-107); CREATININE FOR GFR 0.96 MG/DL (0.70-1.30); GLOMERULAR FILTRATION RATE > 60.0 (>56); GLUCOSE, FASTING 95 MG/DL (70-100); POTASSIUM SERUM 3.9 MEQ/L (3.5-5.1); SODIUM LEVEL 138 MEQ/L (136-145)
[2018-04-27] MEDS: VANCOMYCIN HCL 1,000 MG, VIAL MATE ADAPTER 1 EACH in D5W 250 ML IV SCH ×2 (06:30→13:56)
[2018-04-27 08:00] VITALS: BP 146/90
[2018-04-27] MEDS ORDERED: FLUBLOK(EGG FREE)(QUAD)INFLUENZA VACC 0.5ML SYRINGE (90682)18YRS&OLDER IM ONE (09:00)
--- NOTE | 2018-04-27 09:31 | REP ---
Chest x-ray: Two views. History: Pleural effusion. Comparison study: April 26, 2018. Findings: Left chest tube remains in place. There is less pleural air and a little less pleural thickening along the left lateral chest wall today compared to yesterday's radiograph. No new infiltrate is seen. Right lung remains clear. Electronically Signed by Spencer Cardenas MD 04/27/2018 09:22 A
[2018-04-27] MEDS: ENOXAPARIN 40 MG/0.4 ML SYRINGE (J1650) SC SCH (09:53)
[2018-04-27 12:00] VITALS: BP 141/81
[2018-04-27] MEDS ORDERED: ALTEPLASE 2 MG/2 ML VIAL (J2997 PER 1MG) XX ONE (13:15)
--- NOTE | 2018-04-27 13:45 | REP ---
CT CHEST WITHOUT CONTRAST: HISTORY: Status of lung. Empyema. Comparison CT studies are from April 26, 2018 and April 25, 2018. CT FINDINGS: Left chest tube remains in place. There is a diffuse parietal and visceral regular and moderate pleural thickening. There is continued improvement in the amount of fluid and air in the pleural space. A left upper lobe perihilar infiltrate is again seen. This is essentially unchanged. There is some persistent consolidation and an irregular air-containing cavity extending to the visceral pleura in the left lower lobe. This is unchanged as well. On sagittal reformatted images this cavity measures up to 4.2 cm in anteroposterior dimension. No new consolidation is seen. There is some residual major fissure thickening superiorly. IMPRESSION: Improved amount of pleural fluid. Left chest tube remains in place. An irregular air containing cavity is seen in the left lower lobe with surrounding consolidation. This cavity extends via a tract to the overlying visceral pleural surface. A small to moderate pericardial effusion is seen unchanged from yesterday's CT study. Electronically Signed by Spencer Cardenas MD 04/27/2018 05:04 P
[2018-04-27 16:00] VITALS: BP 141/85
[2018-04-27] MEDS: ACETAMINOPHEN TAB 650MG DOSE (2X325MG) PO PRN ×2 (17:04→23:42)
--- NOTE | 2018-04-27 17:17 | IPN ---
DATE: 04/25/2018 Mr. King states that he is feeling better today. His chest x-ray looked as if the lung was fully expanded to the chest wall; however, I did obtain a CT scan and it still shows a rind with a small amount of separation. We did get a significant amount of drainage back from the chest tube after yesterday's TPA pleurolysis to the tune of about 875 mL, half of which was gareth pus. His vital signs show a maximum temperature (t-max) of 99.5 with a heart rate that ranges between 75 and 79 in a sinus rhythm, respiratory rate is 16 to 18 without the use of accessory muscles, who is 91 to 93% saturated on room air. His blood pressure is ranging between 146/90 to 137/81. His intake and output the past 24 hours has been recorded as 2245 in and 1800 out for a positivity of 445 mL. As noted above, he has put out 875 mL from the chest tube and he weighs 98.4 kg today compared to 98.2 kg yesterday. PHYSICAL EXAMINATION: LUNGS: He has bilateral rales and rhonchi, particularly during inspiration on both sides. The egophony is however gone. Breath sounds are equal on either side. Percussion note is full to the diaphragm. CARDIAC EXAM: Without murmurs, clicks, gallops or rubs. I cannot feel his point of maximum impulse (PMI). S1, S2 are normal. ABDOMEN: Soft, nontender. Bowel sounds positive. There is no hepatomegaly. No costovertebral angle tenderness. EXTREMITIES: Show no pretibial edema. No calf tenderness. No differential swelling of the upper extremities. SKIN: Warm, dry and perfused without cyanosis or mottling, including that of the nail beds and knees. NECK: Supple. There is no jugular venous distention. No subcutaneous emphysema. Trachea is midline. MOUTH: Shows his mucous membranes to be pink and moist. Lips and commissures without lesions. There is no thrush. EYES: Show his pupils to be equal and reactive. Extraocular motion intact. Sclerae anicteric. NEUROLOGIC: Shows II through XII intact with gross motor and gross sensation intact. Gait is not tested. PSYCHIATRIC: Shows him to be awake and alert, oriented times three with appropriate mood and affect and conversational. His white count today is 13.7, down from 20.0 two days ago and down from 14.9 yesterday. Hemoglobin and hematocrit are 10.4 and 34.3, unchanged from yesterday with a platelet count of 387. His electrolytes are normal with a BUN and creatinine of 12 and 0.96. Glucose is 95, calcium 7.8. Vancomycin trough yesterday was 17.3, within the therapeutic window. Microbiology has not grown anything from the fluid collection. It was however gareth pus. Pathology is negative for malignancy, consistent with emphysema. IMPRESSION: 1. Left sided pneumonia, probably lower lobe. 2. Empyema. 3. Gastroesophageal reflux disease (GERD). 4. Lung entrapment, improved. PLAN/DISCUSSION: I will do TPA pleurolysis today. We will keep the chest tubes clamped for 4 hours and then unclamp them and place them back to suction. Chest CT still showed a rim of entrapped lung, but it was much improved from yesterday. I am hoping to remove the last rim of pus and fiber and get the lung all the way to the chest wall. At this point, even if the lung does not go back to the chest wall, it is just a small amount of entrapment that will not affect his overall pulmonary function.
[2018-04-27 20:00] VITALS: BP 144/76
[2018-04-28] VITALS: BP 139/82
[2018-04-28 04:00] VITALS: BP 123/68
[2018-04-28] MEDS: PERCOCET 5MG/325MG TAB PO PRN ×3 (04:16→23:55)
[2018-04-28 05:19] LABS: HEMATOCRIT 35.3 % (42.0-52.0); HEMOGLOBIN 10.9 g/dl (13.5-17.5); MEAN CORPUSCULAR HEMOGLOBIN 26.8 pg (27.0-33.0); MEAN CORPUSCULAR HGB CONC 30.9 g/dl (32.0-36.5); MEAN CORPUSCULAR VOLUME 86.9 fl (80.0-96.0); PLATELET COUNT, AUTOMATED 397 10^3/uL (150-450); RED BLOOD COUNT 4.06 10^6/uL (4.30-6.10); WHITE BLOOD COUNT 16.2 10^3/uL (4.0-10.0)
[2018-04-28 05:38] LABS: BLOOD UREA NITROGEN 11 MG/DL (7-18); CALCIUM LEVEL 7.5 MG/DL (8.5-10.1); CARBON DIOXIDE LEVEL 31 MEQ/L (21-32); CHLORIDE LEVEL 103 MEQ/L (98-107); CREATININE FOR GFR 0.95 MG/DL (0.70-1.30); GLOMERULAR FILTRATION RATE > 60.0 (>56); GLUCOSE, FASTING 95 MG/DL (70-100); POTASSIUM SERUM 4.4 MEQ/L (3.5-5.1); SODIUM LEVEL 137 MEQ/L (136-145)
[2018-04-28] MEDS: PIPERACILLIN/TAZOBACTAM SOD 3.375 GM in D5W MINI-BAG PLUS 50 ML IV SCH ×4 (05:38→23:55)
[2018-04-28 08:00] VITALS: BP 125/65
--- NOTE | 2018-04-28 08:02 | REP ---
CHEST X-RAY: Two views. HISTORY: Chest tube. Pleural effusion. COMPARISON STUDY: April 27, 2018. FINDINGS: A left pleural drainage catheter remains in place. There is extrathoracic soft tissue emphysema at the chest tube insertion site along the left lower rib cage. Pleural thickening persists along the left lateral chest wall and at the left base unchanged from yesterday's radiograph. No new infiltrate. A small quantity of pleural air is visible posteriorly at the apex on the lateral film unchanged. There is thickening in the major fissure unchanged. IMPRESSION: No new infiltrate. Left chest tube remains in place. Electronically Signed by Spencer Cardenas MD 04/28/2018 09:30 A
[2018-04-28] MEDS: ENOXAPARIN 40 MG/0.4 ML SYRINGE (J1650) SC SCH (09:39)
--- NOTE | 2018-04-28 10:20 | CCN ---
DATE: 04/28/2018 Mr. King seen in the progressive care unit (PCU). His chest tube is in place. Dr. Elkins had seen him earlier and had noted an air leak. However, when Dr. Barrett and I saw him a little bit later on, he did not have evidence of an air leak at that time. The patient is doing well. He states he is feeling much better. He denies any significant discomfort. States his breathing is much better. He is currently afebrile with temperature of 97.3. He did have a temperature of 100.8 at midnight but has been afebrile since then. Dr. Elkins performed a tPA pleurolysis yesterday on the patient. VITALS: Temperature is 97.3. Maximum temperature (T-max) is 100.8 at midnight, pulse 86, respiratory 19, blood pressure is 125/65, pulse ox is 92% on room air. GENERAL: The patient is alert and oriented times three. He speaks in complete sentences. He is able to sit up. HEENT: Head is normocephalic, atraumatic. Moist mucous membranes. Trachea is NECK: Neck is supple. Trachea is midline. No cervical lymphadenopathy. No jugular venous distention (JVD). CARDIAC: Regular rate and rhythm. S1, S2 no murmurs. PULMONARY: The patient has a high-pitched transmitted chest tube wheeze. Does appear improved from previous. ABDOMEN: Positive bowel sounds, soft, nontender. EXTREMITIES: No edema. SKIN: Warm and dry. LABS: WBC 16.2, hemoglobin 10.9, hematocrit 35.3, platelets 397. Sodium 137, potassium 4.4, chloride 103, carbon dioxide 31, BUN 11, creatinine 0.95, glucose 95, calcium 7.5. Pleural fluid culture is pending. Blood culture negative after 48 hours times three. Sputum culture pending. Pathology with pleural fluid negative for malignancy and pleural fluid cell block negative for malignancy. Chest x-ray: Small rim of pleural air on the left with persistent loculation but overall improved. There is subcutaneous air. The chest tube is in good position. ASSESSMENT/PLAN: Empyema from presumed pneumonia: The patient has a chest tube in place from Dr. Elkins. He underwent tPA pleurolysis yesterday. Dr. Elkins had noted an air leak earlier today but as noted when Dr. Sears and I saw the patient, we did not detect an air leak. If the patient continues to have no air leak, would consider clamping the tube tomorrow and continue to monitor. The patient is on Zosyn for antibiotic coverage. His vancomycin was discontinued.
--- NOTE | 2018-04-28 10:27 | IPN ---
DATE: 04/28/2018 Mr. King underwent another TPA pleurolysis with good results. He put out 495 mL from the chest tube yesterday after clamping it. His vital signs show a maximum temperature (t-max) of 100.8 is now 98.6. Heart rate ranges between 104 and 75 with a respiratory rate of 18 to 20 without the use of accessory muscles, who is 99 to 93% saturated on 2 liters nasal cannula. His blood pressure is ranging between 139/82 to 123/68. His intake and output the past 24 hours has been recorded as 2280 in and 1845 for a positivity of 435 mL. His chest tube output is noted above. He does have an air leak with forceful coughing. PHYSICAL EXAMINATION: LUNGS: His right lung shows normal vesicular sounds. I hear no wheezes, rhonchi, or rales. The left lung shows rhonchi and squeaks associated with his tube and air leak. Percussion note is full to the diaphragm. CARDIAC EXAM: Without murmurs, clicks, gallops or rubs. I cannot feel his point of maximum impulse (PMI). S1, S2 are normal. ABDOMEN: Soft, nontender. Bowel sounds positive. There is no hepatomegaly. No costovertebral angle tenderness. EXTREMITIES: Show no pretibial edema. No calf tenderness. No differential swelling of the upper extremities. SKIN: Warm, dry and perfused without cyanosis or mottling, including that of the nail beds and knees. NECK: Supple. There is no jugular venous distention. No subcutaneous emphysema. Trachea is midline. MOUTH: Shows his mucous membranes to be pink and moist. Lips and commissures without lesions. There is no thrush. EYES: Show his pupils to be equal and reactive. Extraocular motion intact. Sclerae anicteric. NEUROLOGIC: Shows II through XII intact with gross motor and gross sensation intact. Gait is not tested. PSYCHIATRIC: Shows him to be awake and alert, oriented times three with appropriate mood and affect and conversational. He still remains on Piperacillin. Microbiology still has not grown anything from the pleural fluid. Blood cultures are negative. His white count today is 16.2 with a hemoglobin and hematocrit of 10.9 and 35.3 respectively. Platelet count is 397. His chemistry showed normal electrolytes with a BUN and creatinine of 11 and 0.95. Glucose is 95, with a calcium 7.5. His vancomycin trough on 04/26/2018 was 17.3, it was within therapeutic window. IMPRESSION: 1. Left sided necrotizing pneumonia, lower lobe. 2. Empyema. 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 4. Gastroesophageal reflux disease (GERD). 5. Lung entrapment, improved. PLAN/DISCUSSION: His chest tube should remain on suction. We will be able to remove it when his air leak stops and when his drainage is less than 200 mL per day with serous fluid emanating from the chest tube. I am sure the alveolar pleural fistula will eventually resolve but it could be prolonged. We do not have a positive organism yet. He should remain on the same antibiotics Piperacillin with vancomycin as he is on. His chest CT yesterday shows extensive consolidation with what may be even an abscess cavity in the left lower lobe laterally. This may be the source of his alveolar pleural fistula and in fact maybe even a bronchopleural pleurofistula. I can trace the tract from the pleural surface to a bronchus. The pulmonary service will follow his pneumonia and chest tube. Once he is discharged he will return to see me in 7-10 days after discharge for followup.
[2018-04-28 12:00] VITALS: BP 115/65
[2018-04-28] MEDS: SLF 3 ML SYR IV SCH ×2 (13:57→19:44)
[2018-04-28 16:00] VITALS: BP 134/71
[2018-04-28] MEDS: SLF 3 ML SYR IV PRN ×2 (18:05→19:43)
[2018-04-28 20:00] VITALS: BP 136/76
[2018-04-29] VITALS (7 sets, daily range): BP systolic 118–155; BP diastolic 67–73
[2018-04-29 05:16] LABS: HEMATOCRIT 38.5 % (42.0-52.0); HEMOGLOBIN 11.8 g/dl (13.5-17.5); MEAN CORPUSCULAR HEMOGLOBIN 26.8 pg (27.0-33.0); MEAN CORPUSCULAR HGB CONC 30.6 g/dl (32.0-36.5); MEAN CORPUSCULAR VOLUME 87.3 fl (80.0-96.0); PLATELET COUNT, AUTOMATED 401 10^3/uL (150-450); RED BLOOD COUNT 4.41 10^6/uL (4.30-6.10); WHITE BLOOD COUNT 15.4 10^3/uL (4.0-10.0)
[2018-04-29 05:31] LABS: BLOOD UREA NITROGEN 11 MG/DL (7-18); CARBON DIOXIDE LEVEL 30 MEQ/L (21-32); CHLORIDE LEVEL 101 MEQ/L (98-107); CREATININE FOR GFR 0.98 MG/DL (0.70-1.30); GLOMERULAR FILTRATION RATE > 60.0 (>56); GLUCOSE, FASTING 87 MG/DL (70-100); POTASSIUM SERUM 4.4 MEQ/L (3.5-5.1); SODIUM LEVEL 137 MEQ/L (136-145)
[2018-04-29] MEDS: SLF 3 ML SYR IV SCH ×3 (05:45→20:59)
[2018-04-29] MEDS: PIPERACILLIN/TAZOBACTAM SOD 3.375 GM in D5W MINI-BAG PLUS 50 ML IV SCH (05:53)
--- NOTE | 2018-04-29 08:28 | REP ---
Chest x-ray: Two views. History: Chest tube. Comparison chest x-ray: April 28, 2018. Findings: The left chest tube remains in place unchanged. There is extrathoracic soft tissue emphysema along the chest tube insertion site. This is slightly less prominent today. Pleural thickening persists with increased pleural air with an air-fluid level adjacent to the chest tube in the left base. There is also an air-fluid level in the pleural space superiorly and posteriorly on lateral film. This is unchanged. A right lung remains clear. Heart size is normal. No new infiltrate. Impression: Loculated hydropneumothorax with air fluid levels. Left chest tube in place. Electronically Signed by Spencer Cardenas MD 04/29/2018 08:19 A
[2018-04-29] MEDS: ENOXAPARIN 40 MG/0.4 ML SYRINGE (J1650) SC SCH (09:23)
[2018-04-29] MEDS: cefTRIAXone SOD 1 GM in D5W MINI-BAG PLUS 50 ML IV SCH (11:54)
--- NOTE | 2018-04-29 12:43 | IPN ---
DATE: 04/29/2018 The patient was seen and examined this morning during rounds. Overnight, he was afebrile. He had no fevers or chills. He denies any chest pain currently. No pain with inspiration. He has an occasional cough which is not significant. He denies any significant shortness of breath or dyspnea on exertion. Since yesterday morning, he has had output of approximately 150 mL of what appears to be more serous type fluid. There was no significant air leak noted from his chest tube today. The patient did have an episode of some loose stools. No nausea or vomiting. Denies any abdominal pain. LABS: WBC 15.4, hemoglobin 11.8, glucose 401. Chemistries: Sodium 137, potassium 4.4, chloride 101, bicarbonate 30, BUN 11, creatinine 0.98, glucose 87. Micro- pleural fluid cultures were positive for Streptococcus intermedius which was sensitive to ceftriaxone and Levaquin as well as sensitive to penicillins. Chest x-ray this morning still shows the subcutaneous emphysema noted in the left chest wall near the insertion site of the chest tube. The left sided chest tube does not appear to have moved. The appears to be some improvement in the left effusion, however, there is no area where there is an air fluid level in that left lower lung base which may potentially be a developing lung abscess. There is also an air fluid level more anteriorly and posteriorly seen on the lateral films. There is still some small amount of fluid on the left base as well. PHYSICAL EXAMINATION: Temperature 97.2, pulse 83, respirations 18, blood pressure 118/69 and oxygen saturation 90-93% on room air. General: The patient is well nourished, well developed and does not appear in any distress. HEENT: Normocephalic, atraumatic. Mucous membranes are moist. Neck is supple. No adenopathy palpated. Cardiovascular: Regular rate and rhythm. S1, S2. No murmurs appreciated. Pulmonary: There are some squeaks and occasional wheezing rhonchus breath sounds noted on the left side posteriorly. The right lung is clear to auscultation. No adventitious breath sounds noted. Abdomen is soft, nontender, nondistended. Extremities: There is no lower extremity edema bilaterally. ASSESSMENT AND PLAN: The patient is a 58-year-old male with a past medical history hypertension and gastroesophageal reflux disease (GERD) who presented with complaints of fevers and cough. The patient had initially been treated as an outpatient for pneumonia with two courses of antibiotics and did not have any improvement in his symptoms. On presentation, he was noted to have a leukocytosis and did not initially have a fever, but he did spike a temperature on 04/28/2018. His imaging showed a left sided empyema with adjacent compressive left atelectasis. The patient had a left chest tube placed by cardiothoracic surgery with drainage of pus. Fluid studies were consistent with an empyema. He was started on broad spectrum antibiotics initially with Zosyn and vancomycin pending the return of his cultures. The patient was also given two doses of thrombolytics intrapleurally due to the loculated fluid. His fluid cultures are positive for Streptococcus intermedius which appeared to be sensitive to ceftriaxone and Levaquin and was sensitive to the penicillin antibiotic. Will deescalate antibiotics from Zosyn to ceftriaxone given its sensitivity. The patient's chest x-ray this morning does show some of the fluid has improved, however, he does appear to have an air fluid level in that left lower base which may represent a possible developing abscess which was seen on his CT chest from 04/28/2018, that he did have some consolidation in the left lower lobe with a possibly developing abscess cavity there as well. He does appear to have a persistent air fluid level as well, more anteriorly and posteriorly, on the lateral films and on his CT from 04/27/2018 he continues to have a small pneumothorax which is likely pneumothorax ex vacuo at this point. His chest tube has been on suction and there is no air leak currently. I suspect that he will have a component of entrapped lung due to his empyema and will likely cont to have a pneumothorax ex vacuo with incomplete re-expansion of his lung. He is still having some drainage from his chest tube, although not as extensive and appears more serous. Will continue him on suction for today and will likely be able to place on water-seal tomorrow and followup repeat imaging to make sure he does not have worsening of his pneumothorax. The patient will need to be on prolonged course of antibiotics given his empyema and possible lung abscess. Will consider repeating a CT of chest at some point. Will continue with daily chest x-rays for now. Continue with as needed pain medications. Continue with bowel regimen. The patient did have some loose stools and is on antibiotics, therefore will start probiotics Deep vein thrombosis (DVT) prophylaxis with Lovenox. Full code. MTDD
[2018-04-29] MEDS: PERCOCET 5MG/325MG TAB PO PRN ×2 (14:09→20:58)
[2018-04-29] MEDS: LACTOBACILLUS ACIDOPHILUS CAP (BACID) PO SCH ×2 (14:43→18:31)
[2018-04-30] MEDS: cefTRIAXone SOD 1 GM in D5W MINI-BAG PLUS 50 ML IV SCH ×3 (00:22→23:39)
[2018-04-30] MEDS: PERCOCET 5MG/325MG TAB PO PRN ×4 (03:48→23:39)
[2018-04-30] MEDS: SLF 3 ML SYR IV PRN ×2 (03:51→20:24)
[2018-04-30] MEDS: SLF 3 ML SYR IV SCH ×3 (03:51→20:24)
[2018-04-30 04:00] VITALS: BP 114/75
[2018-04-30 04:38] LABS: HEMATOCRIT 32.8 % (42.0-52.0); HEMOGLOBIN 10.2 g/dl (13.5-17.5); MEAN CORPUSCULAR HGB CONC 31.1 g/dl (32.0-36.5); MEAN CORPUSCULAR VOLUME 86.8 fl (80.0-96.0); PLATELET COUNT, AUTOMATED 402 10^3/uL (150-450); RED BLOOD COUNT 3.78 10^6/uL (4.30-6.10)
[2018-04-30 05:02] LABS: BLOOD UREA NITROGEN 11 MG/DL (7-18); CALCIUM LEVEL 7.5 MG/DL (8.5-10.1); CARBON DIOXIDE LEVEL 31 MEQ/L (21-32); CHLORIDE LEVEL 101 MEQ/L (98-107); CREATININE FOR GFR 0.92 MG/DL (0.70-1.30); GLOMERULAR FILTRATION RATE > 60.0 (>56); GLUCOSE, FASTING 90 MG/DL (70-100); POTASSIUM SERUM 4.3 MEQ/L (3.5-5.1); SODIUM LEVEL 136 MEQ/L (136-145)
[2018-04-30 08:00] VITALS: BP 135/79
--- NOTE | 2018-04-30 08:18 | REP ---
PA and lateral chest: Comparisons 04/29/2018. Left thoracotomy tube is unchanged. Effacement left costophrenic angle is unchanged. Infiltrate inferiorly in the left lung is unchanged. Subcutaneous emphysema along the left lateral chest with wall and left lateral abdominal wall is unchanged. Pleural thickening along the left lateral chest wall is unchanged. Right lung is clear. Cardiac size is normal. Impression: No interval change. Electronically Signed by Rizwan Doty MD 04/30/2018 08:09 A
[2018-04-30] MEDS: ENOXAPARIN 40 MG/0.4 ML SYRINGE (J1650) SC SCH (08:27)
[2018-04-30] MEDS: LACTOBACILLUS ACIDOPHILUS CAP (BACID) PO SCH ×2 (08:27→18:33)
[2018-04-30 12:00] VITALS: BP 124/69
[2018-04-30] MEDS ORDERED: ALTEPLASE 2 MG/2 ML VIAL (J2997 PER 1MG) XX ONE (12:00)
[2018-04-30 15:52] LABS: C REACTIVE PROTEIN QUANTITATIV 13.7 MG/DL (0.00-0.30)
[2018-04-30 16:00] VITALS: BP 155/73
--- NOTE | 2018-04-30 19:41 | IPN ---
DATE: 04/30/2018 The patient was seen and examined this morning during rounds. The patient was afebrile overnight. He denies any significant chest pain currently. He has no fevers or chills. He does have a cough, which is worse with certain positions, especially lying on his side. He denies any shortness of breath or dyspnea on exertion. The patient was noted to have minimal output from his chest tube in the past 24 hours. He had approximately 30 mL recorded. There does not appear to be any significant air leak noted from his chest tube today. Of note, the overnight nurse had noted some increasing erythema to his right chest below the level of his dressing. As per the and the patient, he did not have significant erythema previous to this. Today, it does appear slightly worse than it did yesterday evening, as per the . PHYSICAL EXAMINATION: VITAL SIGNS: Temperature 97.1, pulse 84, respirations 20, blood pressure 135/79, oxygen saturation 98% on room air. GENERAL: The patient is well nourished, well developed and does not appear in any acute distress. HEENT: Normocephalic, atraumatic. Mucous membranes are moist. NECK: Supple. There is no adenopathy palpated. CARDIOVASCULAR: Regular rate and rhythm. Normal S1, S2. No murmurs appreciated. PULMONARY: The patient has some occasional squeaks and rhonchorous breath sounds noted on the left side posteriorly. The right lung is clear to auscultation with no adventitious breath sounds noted. On the left chest, the patient has some erythema noted, which extends downward from his dressing. With removal of the dressing, there does appear to be slightly indurated area and there is some tenderness to palpation. His chest wall on the left side does appear slightly swollen as well. ABDOMEN: Soft, nontender, nondistended. EXTREMITIES: There is no lower extremity edema noted bilaterally. LABORATORIES: WBC 14.0, hemoglobin 10.2, platelets 402. Chemistry: Glucose 136, potassium 4.3, chloride 101, bicarbonate 31, BUN 11, creatinine 0.92, glucose 90. Chest x-ray this morning showed that in the posterior upper lobe on the lateral film there is an unchanged air-fluid level there, likely representing a loculated hydropneumothorax. In the left lower lobe there is also an air-fluid level, which may also represent a loculated hydropneumothorax versus developing lung abscess. ASSESSMENT AND PLAN: The patient is a 58-year-old male with a past medical history of hypertension and gastroesophageal reflux disease (GERD), who presented with fevers and cough. The patient had been treated as an outpatient for pneumonia with two courses of antibiotics, but did not have any improvement in his symptoms. The patient was found to have a left sided empyema with adjacent compressive left atelectasis. He had a chest tube placed by cardiothoracic surgery with drainage of pus. Pleural fluid studies were consistent with an empyema and his fluid cultures grew Streptococcus intermedius, which was sensitive to ceftriaxone, Levaquin and to penicillin. The patient's chest x-ray this morning does not appear significantly changed compared to the previous. He does have an air-fluid level in the left lower lung base, which may represent possible developing abscess versus a loculated hydropneumothorax. He also has an air-fluid level in the left upper lobe, posteriorly on the lateral film, which is likely a loculated hydropneumothorax. The patient's chest tube overnight had very minimal drainage and no significant air leak despite the notice of the air-fluid level. He likely has some component of entrapped lung due to the empyema and pneumothorax ex vacuo. This morning on examination, he was noted to have some new erythema in his left chest wall. There was some tenderness slightly to palpation, as well as some mild swelling and induration noted. The patient appeared to have some slight pus-like discharge coming from the chest tube still, and his chest tube was attempted to be flushed with saline, but appeared to possibly have a fibrin plug blocking it. The patient likely with some local cellulitis and infiltration due to possible blockage of his chest tube from fibrin material. Therefore, we will give another dose of intrapleural thrombolytic to see if we can improve drainage from his chest tube. The patient was given 6 mg of TPA diluted in 30 mL of normal saline through his chest tube, which was clamped for 2 hours. The patient was also instructed to roll around and also invert himself to try get the thrombolytic to distribute to the apical part where he likely has a loculated hydropneumothorax. We will also check a CPK, ESR, and C-reactive protein. We will followup with repeat imaging in the morning. We will continue with antibiotics. He has been changed from Zosyn to ceftriaxone 1 gram every 12 hours. The patient will likely need to be on a prolonged course of antibiotics given his empyema and lung abscess. We will consider repeating a CT of the chest depending on his imaging. Continue with pain medications as needed. Continue with bowel regimen and probiotics. Deep vein thrombosis (DVT) prophylaxis with Lovenox. FULL CODE.
[2018-04-30 20:00] VITALS: BP 124/70
[2018-05-01] VITALS (7 sets, daily range): BP systolic 119–148; BP diastolic 65–80
[2018-05-01 04:53] LABS: HEMATOCRIT 32.1 % (42.0-52.0); HEMOGLOBIN 9.8 g/dl (13.5-17.5); MEAN CORPUSCULAR HEMOGLOBIN 26.9 pg (27.0-33.0); MEAN CORPUSCULAR HGB CONC 30.5 g/dl (32.0-36.5); MEAN CORPUSCULAR VOLUME 88.2 fl (80.0-96.0); PLATELET COUNT, AUTOMATED 394 10^3/uL (150-450); RED BLOOD COUNT 3.64 10^6/uL (4.30-6.10)
[2018-05-01] MEDS: ACETAMINOPHEN TAB 650MG DOSE (2X325MG) PO PRN (04:54)
[2018-05-01 05:07] LABS: BLOOD UREA NITROGEN 12 MG/DL (7-18); CALCIUM LEVEL 7.7 MG/DL (8.5-10.1); CARBON DIOXIDE LEVEL 30 MEQ/L (21-32); CHLORIDE LEVEL 100 MEQ/L (98-107); CREATININE FOR GFR 0.98 MG/DL (0.70-1.30); GLOMERULAR FILTRATION RATE > 60.0 (>56); GLUCOSE, FASTING 103 MG/DL (70-100); POTASSIUM SERUM 4.3 MEQ/L (3.5-5.1); SODIUM LEVEL 135 MEQ/L (136-145)
[2018-05-01] MEDS: SLF 3 ML SYR IV SCH ×3 (05:52→22:00)
[2018-05-01] MEDS: LACTOBACILLUS ACIDOPHILUS CAP (BACID) PO SCH ×2 (07:27→18:23)
[2018-05-01] MEDS: PERCOCET 5MG/325MG TAB PO PRN ×5 (07:28→21:27)
[2018-05-01] MEDS: ENOXAPARIN 40 MG/0.4 ML SYRINGE (J1650) SC SCH (07:28)
--- NOTE | 2018-05-01 08:32 | REP ---
PA and lateral chest: Comparison is 04/30/2018. The left thoracotomy tube is unchanged. The infiltrate inferiorly in the left lung is unchanged. Pleural thickening along the left lateral chest wall is unchanged. Subcutaneous emphysema along the inferolateral left chest wall and lateral abdominal wall, unchanged. The right lung is clear. Cardiac size is normal. Impression: No interval change. Electronically Signed by Rizwan Doty MD 05/01/2018 08:23 A
[2018-05-01] MEDS ORDERED: ALTEPLASE 2 MG/2 ML VIAL (J2997 PER 1MG) XX ONE (11:00)
[2018-05-01] MEDS: cefTRIAXone SOD 1 GM in D5W MINI-BAG PLUS 50 ML IV SCH ×2 (11:46→23:24)
[2018-05-01] MEDS: OMEPRAZOLE 20 MG CAP PO SCH (21:27)
--- NOTE | 2018-05-02 04:27 | CCN ---
DATE: 05/01/2018 The patient was seen and examined this morning. Yesterday he received an intrapleural dose of tissue plasminogen activator (tPA). In the past 24 hours he had approximately 156 mL drained from his chest tube. This morning he denies any significant chest pain except for some discomfort in the chest tube insertion site. He was afebrile. He has occasional cough which is mostly positional when he is lying on his right side. There does not appear to be any significant air leak from his chest tube today. PHYSICAL EXAMINATION: VITALS: Temperature 97.2, temperature maximum (T-max) was 99.6, pulse 84, respirations 18, blood [id number], oxygen saturation 96% on room air. GENERAL: The patient is a well-nourished, well-developed and is not in any acute distress. HEENT: Normocephalic, atraumatic. Moist mucous membranes. Neck is supple. There is no adenopathy palpated. CARDIOVASCULAR: Regular rate and rhythm. Normal S1, S2. No murmurs appreciated. PULMONARY: The patient has some improved breath sounds on the left side with occasional crackles and rhonchi. The right lung is clear to auscultation with no adventitious breath sounds noted. The left posterior chest had some erythema which was marked off. Today the erythema appears to be slightly lessened. There is some slight area of induration which is mildly tender to palpation. ABDOMEN: Soft, nontender, nondistended. EXTREMITIES: There is no lower extremity edema noted bilaterally. LABORATORIES: White blood cell (WBC) 13, hemoglobin 9.8, platelets 394. Chemistry: Glucose 135, potassium 4.3, chloride 100, bicarbonate 30, BUN 12, creatinine 0.98, glucose 103, C-reactive protein (CRP) trending down from 29.9 initially to 13.7 yesterday. Creatine phosphokinase (CPK) was 25. A chest x-ray this morning showed a decrease in the fluid level in the left lower lobe loculated hydropneumothorax. In the left upper lobe in that posterior region the air-fluid level is unchanged on the lateral film. In that left lower lobe there does appear to be a possible rounded developing cavity. ASSESSMENT AND PLAN: The patient is a 58-year-old male with a history of hypertension and gastroesophageal reflux disease (GERD) who presented with fevers and cough. The patient had been treated as an outpatient for pneumonia with two courses of antibiotics but did not have any improvement in his symptoms. He was found on admission to have a left-sided empyema with adjacent compressive left atelectasis. The patient had a chest tube placed by cardiothoracic surgery with drainage of pus. Fluid studies were consistent with empyema and his cultures grew Streptococcus intermedius which was sensitive to ceftriaxone, Levaquin and to penicillin. The patient was initially on Zosyn, was later changed to ceftriaxone after the sensitivities returned. Yesterday the patient was given another dose of thrombolytics as his x-ray continued to show an air-fluid level in the left lower lobe opacity as well as another loculated hydropneumothorax in the left upper lobe. He also had new erythema and possible some local cellulitis from extension of his empyema into his chest. The tPA appreciated to have broken up some of the fibrin clot and drained the left lower lobe hydropneumothorax as on the x-ray this morning the air-fluid level is less. He does continue to have that loculated likely hydropneumothorax in the left upper lobe which is unchanged. His local cellulitis and erythema appears less today. We will try to give another dose of intrapleural thrombolytics today to see if we can get lysis of the loculated effusion in his left upper lobe. The patient was given another 6 mg of tPA diluted in 30 mL of sterile normal saline through his chest tube which was clamped for two hours and then unclamped. The patient was also placed in Trendelenburg position while his chest tube was clamped to facilitate administration of the tPA into his left upper lobe region posteriorly. We will follow up with repeat chest x-ray in the morning. Continue with ceftriaxone 1 gram every 12. The patient will likely need to be on a prolonged course of antibiotics given his empyema and possible lung abscess. We will repeat a CT chest likely tomorrow. Continue with pain medications as needed. Continue with bowel regimen and probiotics. Will start a proton pump inhibitor (PPI) given his history of gastroesophageal reflux disease (GERD). Deep vein thrombosis (DVT) prophylaxis with Lovenox. FULL CODE.
[2018-05-02 04:34] LABS: HEMATOCRIT 32.5 % (42.0-52.0); HEMOGLOBIN 9.7 g/dl (13.5-17.5); MEAN CORPUSCULAR HEMOGLOBIN 26.4 pg (27.0-33.0); MEAN CORPUSCULAR HGB CONC 29.8 g/dl (32.0-36.5); MEAN CORPUSCULAR VOLUME 88.6 fl (80.0-96.0); PLATELET COUNT, AUTOMATED 402 10^3/uL (150-450); RED BLOOD COUNT 3.67 10^6/uL (4.30-6.10); WHITE BLOOD COUNT 12.5 10^3/uL (4.0-10.0)
[2018-05-02 04:45] VITALS: BP 130/66
[2018-05-02 04:52] LABS: BLOOD UREA NITROGEN 11 MG/DL (7-18); CALCIUM LEVEL 7.5 MG/DL (8.5-10.1); CARBON DIOXIDE LEVEL 30 MEQ/L (21-32); CHLORIDE LEVEL 100 MEQ/L (98-107); CREATININE FOR GFR 0.92 MG/DL (0.70-1.30); GLOMERULAR FILTRATION RATE > 60.0 (>56); GLUCOSE, FASTING 88 MG/DL (70-100); POTASSIUM SERUM 4.4 MEQ/L (3.5-5.1); SODIUM LEVEL 135 MEQ/L (136-145)
[2018-05-02] MEDS: SLF 3 ML SYR IV SCH ×3 (05:44→20:46)
[2018-05-02] MEDS: PERCOCET 5MG/325MG TAB PO PRN ×3 (07:26→20:46)
[2018-05-02 08:00] VITALS: BP 113/63
[2018-05-02] MEDS: ENOXAPARIN 40 MG/0.4 ML SYRINGE (J1650) SC SCH (09:03)
[2018-05-02] MEDS: LACTOBACILLUS ACIDOPHILUS CAP (BACID) PO SCH ×2 (09:03→18:24)
--- NOTE | 2018-05-02 10:11 | REP ---
CHEST PA AND LATERAL: 05/02/2018 CLINICAL HISTORY: Empyema. Chest tube. COMPARISON: 05/01/2018, 04/30/2018, 04/29/2018. FINDINGS: Left chest tube again seen. There is a loculated hydropneumothorax laterally and posteriorly at the left base, the air collection slightly smaller than yesterday's study. Fluid in the major fissure noted. There is also a small air-fluid level on the lateral view only at the superior aspect of the major fissure consistent with a small loculation in the upper chest posteriorly as well. There are no other interval changes. Right lung is clear. IMPRESSION: 1. Left-sided chest tube posterolaterally with a loculated hydropneumothorax left lateral base and another smaller air fluid collection at the superior margin of the major fissure on the lateral view seen as an air-fluid level on the frontal view as well. All of this unchanged. Right lung remains clear. Heart and mediastinum unremarkable. Electronically Signed by Rian Larose MD 05/02/2018 07:39 P
[2018-05-02] MEDS: cefTRIAXone SOD 1 GM in D5W MINI-BAG PLUS 50 ML IV SCH (11:49)
[2018-05-02 12:00] VITALS: BP 129/69
--- NOTE | 2018-05-02 14:10 | IPN ---
DATE: 05/02/2018 The patient is seen and examined this morning during rounds. The patient received another dose of intrapleural thrombolytics yesterday. He did have some chest discomfort after the injection of the thrombolytics, after which he received pain medications with improvement in his symptoms. He denies any fevers overnight. No chills. Occasional cough, not productive of any sputum. His chest tube output in the past 24 hours was reported 165 mL. The output appears to be slightly blood tinged, but more serous and less pus-like. PHYSICAL EXAMINATION: Temperature 98.2, pulse 98, respirations 20, blood pressure 113/63, oxygen saturation 95% on room air. GENERAL: The patient is well nourished, well developed. He is not in any acute distress. HEENT: Normocephalic, atraumatic. Moist mucous membranes. NECK: Supple. There is no cervical adenopathy. CARDIOVASCULAR: Regular rate and rhythm. Normal S1, S2. No murmurs appreciated. PULMONARY: The patient has occasional crackles on the left base. Right lung is clear to auscultation. The erythema and swelling in the left posterior chest appears to be stable. Some of the swelling appears lesser and it is softer and not as indurated. ABDOMEN: Soft, nontender, nondistended. EXTREMITIES: There is no lower extremity noted bilaterally. LABORATORIES: WBC 12.5, hemoglobin 9.7, platelets 402. Chemistry: Sodium 135, potassium 4.4, chloride 100, bicarbonate 30, BUN 11, creatinine 0.92, glucose 88. Chest x-ray this morning appears unchanged from yesterday. The left lower lobe there is a loculated hydropneumothorax with a small amount of fluid. The left upper lobe posterior region has a loculated hydropneumothorax with air-fluid level that is unchanged on the lateral film. In the left lower lobe there also continues to have a rounded air space, which may be developing cavity. ASSESSMENT AND PLAN: The patient is a 58-year-old male with a history of hypertension and gastroesophageal reflux disease (GERD), who presented with fevers and cough. He had been treated as an outpatient with two rounds of antibiotics without any improvement in his symptoms. He was found to have a left sided empyema upon presentation to the hospital with adjacent compressive left sided atelectasis. The patient had a chest tube placed by cardiothoracic surgery with drainage of pus. Fluid studies were consistent with empyema and the cultures grew Streptococcus intermedius. The patient was initially on Zosyn, which was later changed to ceftriaxone after the sensitivities returned. He had been given multiple doses of thrombolytics and received another dose yesterday. This morning, he did have some output in the past 24 hours and the fluid appears more serous and less pus-like. He had some localized cellulitis and erythema in his left posterior chest, which appeared stable. The patient does not have any significant air leak noted from the chest tube this morning. We will clamp the chest tube and we will get a CT of the chest to further evaluate what is likely a pneumothorax ex vacuo with lung entrapment. Depending on the findings of the CT and if there is no increase in the pneumothorax with clamping of the chest tube, the patient may have removal of his chest tube later today. He will need a prolonged course of antibiotics. We will switch him to oral antibiotics when he is able to be discharged. We will treat until resolution of the findings on CT, especially if there is any lung abscess. Continue with pain medications and with bowel regimen and probiotics. Continue with proton pump inhibitor. Deep vein thrombosis (DVT) prophylaxis. FULL CODE. MTDD
[2018-05-02 16:00] VITALS: BP 115/60
--- NOTE | 2018-05-02 16:28 | REP ---
Chest one-view HISTORY: Chest tube Comparison: 12:02 p.m. and 04/30/2018 Patchy density is present in the left lower lobe consistent with atelectasis or infiltrate. The right lung is clear. A hydropneumothorax is present in the left lateral hemithorax. There is slightly less fluid compared to the previous study. Chest tube is present in the left hemithorax. The heart is normal in size. The pulmonary vasculature is normal in appearance. Impression: 1. Left lower lobe atelectasis or infiltrate. 2. Left lateral hydropneumothorax with slightly less fluid compared to the previous study. Electronically Signed by Andres Lamas MD 05/02/2018 04:19 P
[2018-05-02 20:00] VITALS: BP 132/73
[2018-05-02] MEDS: OMEPRAZOLE 20 MG CAP PO SCH (20:45)
[2018-05-03] VITALS (7 sets, daily range): BP systolic 83–136; BP diastolic 63–83
[2018-05-03] MEDS: cefTRIAXone SOD 1 GM in D5W MINI-BAG PLUS 50 ML IV SCH ×2 (00:12→13:12)
[2018-05-03] MEDS: SLF 3 ML SYR IV SCH ×3 (05:44→22:00)
[2018-05-03] MEDS: PERCOCET 5MG/325MG TAB PO PRN ×4 (06:11→21:07)
--- NOTE | 2018-05-03 07:15 | REP ---
Clinical: Follow up empyema. Technique: Axial noncontrast images from the thoracic inlet to the upper abdomen with coronal and sagittal re-formations. Comparison: 04/27/2018. Findings: Left-sided chest tube is in stable position. Small to moderate multiloculated left hydropneumothorax is again appreciated and appears to be mildly increased and slightly more prominent than prior examination. 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 Associated small areas of consolidation and irregular pleural thickening are again noted and similar to prior examination. Left-sided subcutaneous emphysema is unchanged. The right hemithorax is clear. Mediastinum demonstrates small stable pericardial effusion without cardiomegaly. Thoracic aorta and pulmonary vasculature appear relatively normal. Reactive mediastinal lymph nodes measure up to 13 mm. Small hiatal hernia at the gastroesophageal junction identified. The osseous structures appear intact. Upper abdomen demonstrates normal bilateral adrenal glands. Impression: 1. 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 Subtle scattered areas of left-sided consolidation/atelectasis and pleural thickening essentially unchanged. 2. Right hemithorax and mediastinum remain stable including small pericardial effusion. Electronically Signed by Ramy Sainz MD 05/03/2018 07:07 A
[2018-05-03] MEDS: LACTOBACILLUS ACIDOPHILUS CAP (BACID) PO SCH ×3 (08:00→17:47)
[2018-05-03 08:47] LABS: MEAN CORPUSCULAR HGB CONC 30.6 g/dl (32.0-36.5); MEAN CORPUSCULAR VOLUME 88.5 fl (80.0-96.0); PLATELET COUNT, AUTOMATED 474 10^3/uL (150-450); RED BLOOD COUNT 4.07 10^6/uL (4.30-6.10); WHITE BLOOD COUNT 14.4 10^3/uL (4.0-10.0)
[2018-05-03] MEDS: ENOXAPARIN 40 MG/0.4 ML SYRINGE (J1650) SC SCH (09:00)
[2018-05-03 09:07] LABS: BLOOD UREA NITROGEN 8 MG/DL (7-18); CALCIUM LEVEL 8.5 MG/DL (8.5-10.1); CARBON DIOXIDE LEVEL 29 MEQ/L (21-32); CHLORIDE LEVEL 100 MEQ/L (98-107); CREATININE FOR GFR 1.11 MG/DL (0.70-1.30); GLOMERULAR FILTRATION RATE > 60.0 (>56); GLUCOSE, FASTING 122 MG/DL (70-100); POTASSIUM SERUM 4.4 MEQ/L (3.5-5.1); SODIUM LEVEL 134 MEQ/L (136-145)
[2018-05-03] MEDS ORDERED: LIDOCAINE 1% MDV 20ML VIAL As Ordered ONE (09:14)
[2018-05-03] MEDS ORDERED: NS 500 ML IV ONE (10:30)
--- NOTE | 2018-05-03 13:14 | CCN ---
DATE OF SERVICE: 05/03/2018 The patient was seen and examined this morning. Overnight, the patient was noted to have a low-grade fever with a maximum temperature (Tmax) of 100.9. This morning, his temperature is 98.2. He denied any increasing chest pains. No chills. He denies any increased shortness of breath. He does have an occasional cough, which is not productive mostly. He did not have any significant output from his chest tube in the past 24 hours. The patient had a repeat CT chest done yesterday. PHYSICAL EXAMINATION: Temperature 98.2, pulse 88, respirations 18, blood pressure 136/80, oxygen (O2) saturation 92% on room air. General: The patient is well-nourished, well-developed. He is not in any acute distress. HEENT: Normocephalic, atraumatic. Moist mucous membranes. Pupils are reactive. Neck is supple. No cervical adenopathy. Cardiovascular: Regular rate and rhythm. Normal S1, S2. No murmurs appreciated. Pulmonary: The patient has decreased breath sounds with occasional crackles on the left base. Right lung is clear to auscultation. The previously-noted erythema appears to be slightly decreased today and continues to have some swelling in the left posterior chest, which appears stable. Abdomen is soft, nontender, nondistended. Extremities: There is no lower extremity edema bilaterally. LABORATORIES: WBC 14.4, hemoglobin 11.0, platelets 474. Chemistry: Sodium 134, potassium 4.4, chloride 100, bicarbonate 29, BUN 8, creatinine 1.11, glucose 122. Chest x-ray this morning appears unchanged from yesterday. The patient continues to have a left lower lobe loculated hydropneumothorax with a small amount of fluid. The left upper lobe posterior region has a loculated hydropneumothorax with air-fluid level which you can see on the lateral film and is unchanged. The patient continues to have air in the subcutaneous region. The patient had a CT chest done yesterday, which showed that his left-sided chest tube is in place extending towards the posterior wall of his left chest. He has some increase in the loculated left hydropneumothorax with increased air on this CT when compared to his previous CT on 04/27/2018. 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 He continues to have irregular pleural thickening and consolidation, which appears unchanged to previous. His left-sided subcutaneous emphysema appears increased on this CT when compared to the previous, and it is extending further down into his chest wall on the left. His right hemithorax is clear. He has a stable small pericardial effusion. The patient has some mild increased mediastinal lymph nodes. ASSESSMENT AND PLAN: The patient is a 58-year-old male with a history of hypertension and gastroesophageal reflux disease (GERD) who presented with fever and cough. The patient had been treated as an outpatient with antibiotics without any improvement in his symptoms. On admission, he was found to have a large left-sided empyema, which was drained by cardiothoracic surgery with a chest tube. Fluid studies were consistent with empyema, and the cultures grew Streptococcus intermedius. The patient was initially on Zosyn, which was later changed to ceftriaxone after the sensitivities returned, but he was initially on vancomycin and Zosyn. The patient has received multiple doses of thrombolytics through his chest tube. He has not had significant output from his chest tube, and there was no air leak noted. Yesterday, he had his chest tube clamped, and he had a repeat CT chest done. CT chest was done while his chest tube was clamped, and it showed compared to the previous that he had an increase in his loculated hydropneumothorax on the left side with what appears to be a bronchopleural fistula, which is more prominent on this image than on his last CT. He also seems to have extension of his subcutaneous emphysema in his left lateral chest wall, which has been extending downwards. The other findings, including the pleural thickening and some intraparenchymal opacities in the left side, appear unchanged. The patient also was noted to have a fever overnight, and his leukocytosis has increased slightly. His C-reactive protein (CRP) had been trending down, however, with the antibiotics. I discussed with the patient and his that it appears that he has a loculated hydropneumothorax in the left side more laterally, which is not being drained by his chest tube, which is coursing posteriorly. Given his fever, as well as with the local cellulitic response, there is suggestion that his pus is extending into his chest wall, as well as with that increased subcutaneous emphysema. The patient also has what appears to be a bronchopleural fistula, as well, draining into that hydropneumothorax. Therefore, I would place another CT-guided chest tube into that loculated hydropneumothorax to see if we can re-expand the lung and perhaps get closure of his bronchopleural fistula and drainage of the fluid there. Will send off the fluid for repeat culture to followup with the sensitivities again. The patient will likely need a prolonged course of chest tube drainage and antibiotics. He may need further thrombolytics through his new chest tube depending on the output and radiographic findings. Will get daily chest x-rays. He will likely need another repeat CT in a few days' time. Continue ceftriaxone for antibiotics. Continue with pain medications as needed and with bowel regimen with probiotics. Continue with proton pump inhibitor (PPI) for his history of GERD. Deep venous thrombosis (DVT) prophylaxis. FULL CODE.
--- NOTE | 2018-05-03 15:32 | REP ---
CHEST PA AND LATERAL: 05/03/2018. Comparison 05/02/2018. Findings: Left-sided chest tube again noted and unchanged. Loculated hydropneumothorax at the left lateral base and some pleural thickening above it in the mid left chest. Fluid tracking along the major fissure as before. The right lung remains clear. I see no significant interval change. Electronically Signed by Rian Larose MD 05/03/2018 08:46 P
--- NOTE | 2018-05-03 18:27 | REP ---
CT GUIDED LEFT THORACENTESIS WITH CATHETER PLACEMENT The procedure was performed under the direct supervision of Dr. Larose The risks and benefits of the procedure were explained to the patient and informed consent was obtained. The left hydropneumothorax was localized using CT guidance. The skin was prepped and draped in a sterile fashion. 1% lidocaine was used as a local anesthetic. Using CT guidance a 10-[place] [employer] APDL catheter was inserted using trocar technique. Approximately 0.5 ml of yellow fluid was withdrawn and sent to the lab for analysis. The catheter was affixed to the skin and a sterile dressing was applied. The catheter was connected to a Pleur-Evac. The patient tolerated the procedure well and there were no immediate complications. After the appropriate amount of monitored convalescence the patient was discharged from the department. Reviewed by SPEEDY Garza 05/03/2018 01:24 P Electronically Signed by Rian Larose MD 05/03/2018 06:19 P
[2018-05-03] MEDS: OMEPRAZOLE 20 MG CAP PO SCH (21:07)
[2018-05-04] MEDS: cefTRIAXone SOD 1 GM in D5W MINI-BAG PLUS 50 ML IV SCH ×2 (00:15→11:07)
[2018-05-04] MEDS: PERCOCET 5MG/325MG TAB PO PRN ×3 (01:14→22:01)
[2018-05-04 04:51] VITALS: BP 125/78
[2018-05-04 05:51] LABS: BASO % 0.3 % (0.0-1.0); EOS # 0.2 10^3/uL (0.0-0.50); EOS % 2.5 % (0.0-3.0); HEMATOCRIT 33.6 % (42.0-52.0); LYMPH # 1.1 10^3/uL (1.5-4.5); LYMPH % 12.9 % (24.0-44.0); MEAN CORPUSCULAR HEMOGLOBIN 26.7 pg (27.0-33.0); MEAN CORPUSCULAR HGB CONC 29.8 g/dl (32.0-36.5); MEAN CORPUSCULAR VOLUME 89.6 fl (80.0-96.0); MONO # 0.6 10^3/uL (0.0-0.8); NEUTROPHILS # 6.7 10^3/uL (1.8-7.7); NEUTROPHILS % 76.4 % (36.0-66.0); PLATELET COUNT, AUTOMATED 377 10^3/uL (150-450); RED BLOOD COUNT 3.75 10^6/uL (4.30-6.10); WHITE BLOOD COUNT 8.8 10^3/uL (4.0-10.0)
[2018-05-04] MEDS: SLF 3 ML SYR IV SCH ×3 (05:56→22:01)
[2018-05-04 06:08] LABS: BLOOD UREA NITROGEN 8 MG/DL (7-18); CALCIUM LEVEL 7.8 MG/DL (8.5-10.1); CARBON DIOXIDE LEVEL 30 MEQ/L (21-32); CHLORIDE LEVEL 103 MEQ/L (98-107); GLOMERULAR FILTRATION RATE > 60.0 (>56); GLUCOSE, FASTING 90 MG/DL (70-100); POTASSIUM SERUM 4.8 MEQ/L (3.5-5.1); SODIUM LEVEL 136 MEQ/L (136-145)
[2018-05-04 07:30] VITALS: BP 112/59
--- NOTE | 2018-05-04 08:03 | REP ---
Clinical: Chest tube. Technique: PA and lateral. Comparison: 05/03/2018. Findings: Left-sided chest tube in stable position. A newly placed pigtail catheter in the lower lateral left pleural space is identified with decrease to the associated loculated hydropneumothorax as compared to prior examination. Left lower lobe pleuroparenchymal changes remain prominent. The right hemithorax is clear. Visualized mediastinum and cardiac silhouette are normal. Skeletal structures are stable. Impression: 1. Newly placed pigtail catheter in the left lateral pleural space with subtle decreased to the associated loculated hydropneumothorax. 2. Continued evidence for left lower lobe pleuroparenchymal changes. Electronically Signed by Ramy Sainz MD 05/04/2018 07:55 A
[2018-05-04] MEDS: LACTOBACILLUS ACIDOPHILUS CAP (BACID) PO SCH ×2 (09:20→18:03)
[2018-05-04] MEDS: ENOXAPARIN 40 MG/0.4 ML SYRINGE (J1650) SC SCH (09:20)
[2018-05-04 12:00] VITALS: BP 118/74
--- NOTE | 2018-05-04 13:28 | IPN ---
DATE: 05/04/2018 Patient seen and examined this morning. Overnight patient was afebrile. He had a CT-guided chest tube placed on the left side yesterday, which he tolerated well. He denies any significant pleuritic chest pain or shortness of breath. No significant cough. PHYSICAL EXAMINATION: Temperature 98.3, pulse 85, respirations 20, blood pressure 112/59, oxygen saturation 92% on room air. General: Patient is well-nourished, well-developed. He is not in any acute distress. HEENT: Normocephalic, atraumatic. Moist mucous membranes. Pupils are reactive. Neck is supple. No cervical adenopathy. Cardiovascular: Regular rate and rhythm. Normal S1,S2. No murmurs appreciated. Pulmonary: Decreased breath sounds with occasional crackles of the left base. Right lung is clear to auscultation. The previously noted erythema on the left posterior chest appears decreased today and there appears to be some decrease in swelling in the left posterior chest. Abdomen is soft, nontender, nondistended. Extremities: There is no lower extremity bilaterally. LABORATORY DATA: WBC has decreased to 8.8, hemoglobin 10.0, platelets 377. Chemistry: Sodium was 136, potassium 4.8, chloride 103, bicarbonate 30, BUN 8, creatinine 0.90, glucose is 90. Pleural fluid: Gram stain showed no organisms. Chest x-ray this morning shows there is a decrease in the loculated left lower lobe hydropneumothorax. The previous seen air-fluid level in the left upper lobe on the lateral film that loculated hydropneumothorax also appears slightly smaller this morning. There is still some residual fluid versus pleural thickening in that left lower lobe. He has two chest tubes now on the left side. ASSESSMENT AND PLAN: Patient is a 58-year-old male with a history of hypertension and gastroesophageal reflux disease, who presented with fever and cough. He had previously been treated as an outpatient with antibiotics. No improvement in his symptoms. On admission, he was found to have a large left-sided empyema, which was drained by cardiothoracic surgery with a chest tube. Fluid sites were consistent with empyema and the cultures grew Streptococcus intermedius. Patient was initially on Zosyn, which was later changed to ceftriaxone after his sensitivities returned. He also initially received doses of vancomycin as well. Patient has received multiple doses of thrombolytics through his initial chest tube, but has not had any significant output continuing from the chest tube and no air leak. He had a repeat CT chest done yesterday while his tube was clamped and it showed that there was an increase in the previously noted loculated hydropneumothorax on the left side in the left lower lobe laterally. There also appears to be increased bronchopleural fistula present in that left lower lobe. Patient also has a extension of his previously noted subcutaneous emphysema in his left lateral chest wall. Based on the findings as well as a fever overnight and persistent leukocytosis, he had a second chest tube placed by IR into that loculated hydropneumothorax on the left side. He did have some small drainage of fluid and the loculated hydropneumothorax looks like it has improved on imaging today. On his new chest tube he does not have a significant air leak, which is not unexpected given in the evidence of a bronchopleural fistula on imaging. His repeat chest x-ray does still show some possible pleural thickening versus residual fluid in that left lower lobe, however given the concern for a bronchopleural fistula would hold off on thrombolytics through his new chest tube at this time. Will continue his chest tube to suction. If he does not have any continued output through his older chest tube can likely remove it. Will continue with daily chest x-rays. Will continue antibiotics with ceftriaxone IV every 12. Continue with pain control and bowel measurements as needed. Patient will likely need a repeat CT in 2 days. Continue proton pump inhibitor (PPI) for his history of gastroesophageal reflux disease. Continue the rest of his home medications. Deep venous thrombosis (DVT) prophylaxis. FULL CODE.
[2018-05-04] MEDS: ACETAMINOPHEN TAB 650MG DOSE (2X325MG) PO PRN (15:21)
[2018-05-04 16:00] VITALS: BP 130/80
[2018-05-04] MEDS: MEROPENEM INJ 1 GM in APPROPRIATE DILUENT 1 EA IV SCH (18:01)
[2018-05-04 20:00] VITALS: BP 111/57
[2018-05-04] MEDS: OMEPRAZOLE 20 MG CAP PO SCH (22:00)
[2018-05-04 23:59] VITALS: BP 113/58
[2018-05-05] MEDS: MEROPENEM INJ 1 GM in APPROPRIATE DILUENT 1 EA IV SCH ×3 (02:34→18:30)
[2018-05-05 04:00] VITALS: BP 106/61
[2018-05-05 05:22] LABS: BASO % 0.5 % (0.0-1.0); EOS # 0.2 10^3/uL (0.0-0.50); EOS % 2.9 % (0.0-3.0); HEMATOCRIT 33.9 % (42.0-52.0); HEMOGLOBIN 10.2 g/dl (13.5-17.5); LYMPH % 12.6 % (24.0-44.0); MEAN CORPUSCULAR HEMOGLOBIN 26.4 pg (27.0-33.0); MEAN CORPUSCULAR HGB CONC 30.1 g/dl (32.0-36.5); MEAN CORPUSCULAR VOLUME 87.6 fl (80.0-96.0); MONO # 0.6 10^3/uL (0.0-0.8); MONO % 7.5 % (0.0-5.0); NEUTROPHILS # 6.3 10^3/uL (1.8-7.7); NEUTROPHILS % 75.8 % (36.0-66.0); PLATELET COUNT, AUTOMATED 407 10^3/uL (150-450); RED BLOOD COUNT 3.87 10^6/uL (4.30-6.10); WHITE BLOOD COUNT 8.3 10^3/uL (4.0-10.0)
[2018-05-05 05:44] LABS: BLOOD UREA NITROGEN 8 MG/DL (7-18); CALCIUM LEVEL 8.1 MG/DL (8.5-10.1); CARBON DIOXIDE LEVEL 30 MEQ/L (21-32); CHLORIDE LEVEL 101 MEQ/L (98-107); CREATININE FOR GFR 0.89 MG/DL (0.70-1.30); GLOMERULAR FILTRATION RATE > 60.0 (>56); GLUCOSE, FASTING 86 MG/DL (70-100); POTASSIUM SERUM 4.5 MEQ/L (3.5-5.1); SODIUM LEVEL 136 MEQ/L (136-145)
[2018-05-05] MEDS: SLF 3 ML SYR IV SCH ×3 (06:00→21:46)
[2018-05-05 08:00] VITALS: BP 127/69
[2018-05-05] MEDS: LACTOBACILLUS ACIDOPHILUS CAP (BACID) PO SCH ×2 (08:17→18:29)
[2018-05-05] MEDS: PERCOCET 5MG/325MG TAB PO PRN ×2 (08:18→18:30)
[2018-05-05] MEDS: ENOXAPARIN 40 MG/0.4 ML SYRINGE (J1650) SC SCH (08:19)
--- NOTE | 2018-05-05 09:08 | REP ---
PA and lateral chest: Comparisons are 05/04/2018 and 05/03/2018. The left thoracotomy tube is unchanged. The left pleural space pigtail drainage catheter is unchanged. The left hemopneumothorax identified on 05/03/2018 is no longer identified. There is persisting opacification of the left costophrenic angle, likely atelectasis, unchanged. Right lung is clear. Cardiac size normal. The ever, mediastinum, skeletal structures are unremarkable. Electronically Signed by Rizwan Doty MD 05/05/2018 08:59 A
--- NOTE | 2018-05-05 09:43 | IPN ---
DATE: 05/05/2018 Patient was seen and examined this morning. Yesterday afternoon, patient had a fever, maximum temperature (Tmax) was 101.0. Patient's antibiotics yesterday were brought into meropenem. Overnight, he did not have any further fevers. He denies any significant chest pain or shortness of breath. No significant cough. PHYSICAL EXAM: Temperature 98, pulse 75, respirations 18, blood pressure 100/61, oxygen saturation 94% on room air. Chest tube: Output from the new chest tube was 12 mL. There has been no significant output from his older chest tube. General: Patient is well-nourished, well-developed. He is not in any acute distress. HEENT: Normocephalic, atraumatic. Moist mucous membranes. Pupils are reactive. Neck is supple. Cardiovascular: Regular rate and rhythm. Normal S1, S2. No murmurs appreciated. Pulmonary: Patient has decreased breath sounds at the left base with occasional crackles. Right lung is clear to auscultation. The previously noted swelling in the left posterior chest appears decreased today, and the erythema has also improved. Abdomen is soft, nontender, nondistended. Extremities: There is no lower extremity edema bilaterally. LABS: WBC 8.3, hemoglobin 10.2, platelets 407. Chemistry: Sodium is 136, potassium 4.5, chloride 100, bicarbonate 30, BUN 8, creatinine 0.89, glucose is 86. Pleural fluid cultures showed no growth to date. Chest x-ray this morning appears unchanged from yesterday. He has two chest tubes going into the left base. At the left base, there is some pleural thickening versus residual effusion. The previously seen air-fluid level in the left upper lobe on the lateral film is smaller. ASSESSMENT/PLAN: Patient is a 58-year-old male with a history of hypertension and gastroesophageal reflux disease (GERD), who presented with fever and cough. He had previously been treated as an outpatient with antibiotics with no improvement in his symptoms. On admission, patient was found to have left-sided pleural effusion which was drained by cardiothoracic surgery, and fluid studies were consistent with empyema. The fluid cultures grew Streptococcus intermedius. Patient had initially been on vancomycin and Zosyn, was later changed to ceftriaxone after the sensitivities returned. Patient had received multiple doses of thrombolytics through his initial chest tube but did not have any further output from his chest tube and no air leak. A repeat CT chest showed the increase in his previously-noted loculated hydropneumothorax on the left side in the left lower lobe laterally. He also appeared to have more prominent bronchopleural fistula in the left lower lobe. He was also noted have increased subcutaneous emphysema versus gas into his left lateral chest wall compared to previous imaging. Therefore, given his persistent leukocytosis and a new fever, he had a second chest tube placed by IR into that loculated hydropneumothorax on the left side. He did have some drainage of fluid and air, and on chest x-ray, it appears improved. He is not having any significant output from his new chest tube for from his original chest tube. The original chest tube looks to be, on his last CT, coursing to the posterior part of his left lung and is likely not functioning. Patient did have any another fever last night. His white count has been trending down, however. Will repeat a CT chest today to assess if he still has residual loculated effusions. Would consider an intrapleural thrombolytic through his new chest tube; however, there was a concern for the bronchopleural fistula. Will followup with the CT to see if his lung has expanded and if the bronchopleural fistula is no longer patent. He does not have any significant air leak from his new chest tube which would go against a persistent bronchopleural fistula. Will followup a repeat CT chest. Continue with meropenem for antibiotics and followup his final fluid cultures results. Continue with pain control and bowel regime as needed. Continue proton pump inhibitor (PPI) for his history of GERD. Deep venous thrombosis (DVT) prophylaxis. FULL CODE.
--- NOTE | 2018-05-05 10:17 | REP ---
CT of the chest without IV contrast: Comparison is 05/02/2018. There is a pleural fluid collection posterior inferiorly in the left hemithorax as previously. There is a thoracotomy tube within this pleural fluid collection, as previously. On the prior study there was an air-fluid level within this pleural fluid collection compatible with hydropneumothorax. There has been interval placement of an additional pigtail catheter drainage tube into the pleural space posterior inferiorly in the left hemithorax. The air-fluid level within this pleural fluid collection is no longer identified. However, there are subtle findings again suggestive of a bronchopleural fistula as described previously. The subcutaneous emphysema along the right lateral chest wall is again identified and not significantly changed. The right lung remains clear and unchanged. No evidence of pneumomediastinum. The unenhanced thoracic aorta is unremarkable. Cardiac size normal. There is a pericardial effusion as previously measuring 18 mm in depth to the cardiac apex. This measured 20 mm previously. Impression: There has been interval placement of an additional left pleural pigtail drainage catheter in addition to the previous thoracotomy tube is still remains. The air-fluid level within the hydropneumothorax is no longer identified. There are occasional air bubbles within the remaining pleural fluid as previously. The previously described findings suspicious for bronchopleural fistula are again identified. Electronically Signed by Rizwan Doty MD 05/05/2018 10:08 A
[2018-05-05 12:00] VITALS: BP 125/75
[2018-05-05 16:00] VITALS: BP 131/75
[2018-05-05 20:00] VITALS: BP 136/71
[2018-05-05] MEDS: OMEPRAZOLE 20 MG CAP PO SCH (21:43)
[2018-05-05 23:00] VITALS: BP 120/63
[2018-05-06] MEDS: MEROPENEM INJ 1 GM in APPROPRIATE DILUENT 1 EA IV SCH ×3 (02:00→18:15)
[2018-05-06 03:30] VITALS: BP 105/71
[2018-05-06 05:34] LABS: BASO % 0.1 % (0.0-1.0); EOS # 0.2 10^3/uL (0.0-0.50); EOS % 2.4 % (0.0-3.0); HEMATOCRIT 31.4 % (42.0-52.0); HEMOGLOBIN 9.5 g/dl (13.5-17.5); LYMPH % 13.9 % (24.0-44.0); MEAN CORPUSCULAR HEMOGLOBIN 26.9 pg (27.0-33.0); MEAN CORPUSCULAR HGB CONC 30.3 g/dl (32.0-36.5); MONO # 0.6 10^3/uL (0.0-0.8); MONO % 7.9 % (0.0-5.0); NEUTROPHILS # 5.3 10^3/uL (1.8-7.7); PLATELET COUNT, AUTOMATED 395 10^3/uL (150-450); RED BLOOD COUNT 3.53 10^6/uL (4.30-6.10); WHITE BLOOD COUNT 7.1 10^3/uL (4.0-10.0)
[2018-05-06 05:49] LABS: BLOOD UREA NITROGEN 10 MG/DL (7-18); CALCIUM LEVEL 8.1 MG/DL (8.5-10.1); CARBON DIOXIDE LEVEL 30 MEQ/L (21-32); CHLORIDE LEVEL 101 MEQ/L (98-107); GLOMERULAR FILTRATION RATE > 60.0 (>56); GLUCOSE, FASTING 85 MG/DL (70-100); POTASSIUM SERUM 4.3 MEQ/L (3.5-5.1); SODIUM LEVEL 135 MEQ/L (136-145)
[2018-05-06] MEDS: SLF 3 ML SYR IV SCH ×3 (06:00→21:25)
[2018-05-06 08:00] VITALS: BP 116/76
[2018-05-06] MEDS: ENOXAPARIN 40 MG/0.4 ML SYRINGE (J1650) SC SCH (08:04)
[2018-05-06] MEDS: LACTOBACILLUS ACIDOPHILUS CAP (BACID) PO SCH ×2 (08:04→18:15)
[2018-05-06 12:00] VITALS: BP 106/70
--- NOTE | 2018-05-06 12:48 | REP ---
PA and lateral chest: Comparison is 05/05/2018. The left thoracotomy tube and left pleural space pigtail drainage catheter are unchanged. There is persistent opacification of the left costophrenic angle, nonspecific, combination of atelectasis, infiltrate and pleural effusion. The remainder the lung phillips are clear. Cardiac size normal. Renee, mediastinum, skeletal structures are unremarkable. Impression: No significant interval change. Electronically Signed by Rizwan Doty MD 05/06/2018 12:39 P
--- NOTE | 2018-05-06 15:21 | IPN ---
DATE: 05/06/2018 NOTE: Mr. King reports that he is doing well. He is ambulating as much as he can in his room and is anxious to walk more. No dyspnea on exertion. No cough. No chest pain or pressure. No nausea or abdominal pain. His region of cellulitis is improving and no longer has significant tenderness. No other concerns expressed. OBJECTIVE: PHYSICAL EXAMINATION: GENERAL: Mr. King is sitting in a chair in no acute distress. He can complete full sentences. VITAL SIGNS: Temperature 97.7 with a maximum temperature (t-max) of 98.6. Pulse 94, respiratory rate 18, blood pressure 116/76, with an MAP of 89. SpO2 is 95% on room air. HEENT: Anicteric. Nares patent bilaterally. Moist mucosa. Oropharynx is clear with no lesions. NECK: Supple without thyromegaly or masses. Trachea is midline. LYMPHATICS: Without cervical or supraclavicular lymphadenopathy. LUNGS: Symmetric excursion. Good air entry. Decreased breath sounds at the left base. No significant crackle or rhonchi. No wheezing. Normal I:E. No accessory muscle usage or retractions. Minimal dullness to percussion at the left base. CARDIOVASCULAR: Regular rate and rhythm with normal S1, S2. No murmur, rub or gallop appreciated. ABDOMEN: Normoactive bowel sounds. Soft, nondistended, nontender. EXTREMITIES: Without clubbing, cyanosis or edema. Palpable pedal pulses bilaterally. SKIN: Decreased region of firmness and erythema on the left lateral chest wall. LABORATORY DATA: CBC shows a hemoglobin of 9.5, hematocrit 31.4, platelet count 395,000. White blood cell count 7,100 with a differential of 75% neutrophils, 14% lymphocytes, 8% monocytes. Chemistries show sodium 135, potassium 4.3, chloride 101, bicarbonate 30, anion gap 4, BUN 10, creatinine 0.9, glucose 85, calcium 8.1. Cultures from the pleural fluid from 05/03/2018 are negative to date. His blood cultures from 05/04/2018 are negative to date. Yesterday's input and output showed 1390 in and 1516 out, making him negative 126. Of the output, 16 was from the chest tube. Thus far today, 770 in and no output is recorded. I reviewed his chest x-ray, as well as the report from earlier today. That x-ray showed normal appearing cardiac silhouette and pulmonary vascular shadows. Normal appearing mediastinal and hilar regions. There are two chest tubes on the left with a small region of opacity at the left base, as well as a small region on the left lateral wall toward the left base. No change compared to chest x-ray from yesterday. IMPRESSION: 1. Empyema, Streptococcus intermedius, status post thoracostomy and multiple leaks. The second chest tube was placed on 05/03/2018 in an air fluid level with drainage of that region. Chest CT scan from 05/05/2018 is significantly improved from the one 05/02/2018. 2. Fevers. Mr. King had recurrence of fevers on 05/04/2018, possibly inflammatory versus infective. He has defervesced either from time or from broadening antibiotics to meropenem. Cultures from any fluid drainage have remained negative. Blood cultures are also negative. 3. Bronchopleural fistula. There is evidence of bronchopleural fistula on the chest CT scan from 05/02/2018, it was less evident on yesterday's chest CT scan. 4. Hypertension. 5. Gastroesophageal reflux disease (GERD). RECOMMENDATIONS: 1. We will place the older chest tube to water seal today. If there is no change to chest x-ray tomorrow then we will discontinue that tube. 2. We will change that leaving it on water seal today so he can improve his ambulation. However, from the time that he is in his room and nocturnally, we will have him stay on suction. If his chest x-ray is good tomorrow, we will place that tube on suction. Given his bronchopleural fistula, we will eventually clamp that chest tube before discontinuing it. 3. At the present time, we will continue with the meropenem. I anticipate that if all goes well, his chest tubes will be able to be discontinued, one tomorrow and possibly one Wednesday, which will have given him 5 days on meropenem. If his chest tubes can be discontinued but it is felt that he needs further antibiotics, he could be discharged on Augmentin. We will continue all other care.
[2018-05-06 16:00] VITALS: BP 115/69
[2018-05-06] MEDS: PERCOCET 5MG/325MG TAB PO PRN (18:54)
[2018-05-06 20:00] VITALS: BP 151/84
[2018-05-06] MEDS: OMEPRAZOLE 20 MG CAP PO SCH (21:24)
[2018-05-07] VITALS: BP 125/68
[2018-05-07] MEDS: MEROPENEM INJ 1 GM in APPROPRIATE DILUENT 1 EA IV SCH ×3 (02:45→17:14)
[2018-05-07 04:00] VITALS: BP 118/82
[2018-05-07 05:25] LABS: BASO % 0.6 % (0.0-1.0); EOS # 0.2 10^3/uL (0.0-0.50); EOS % 2.6 % (0.0-3.0); HEMATOCRIT 31.5 % (42.0-52.0); HEMOGLOBIN 9.6 g/dl (13.5-17.5); LYMPH % 15.8 % (24.0-44.0); MEAN CORPUSCULAR HGB CONC 30.5 g/dl (32.0-36.5); MEAN CORPUSCULAR VOLUME 88.7 fl (80.0-96.0); MONO # 0.6 10^3/uL (0.0-0.8); MONO % 8.8 % (0.0-5.0); NEUTROPHILS # 4.7 10^3/uL (1.8-7.7); NEUTROPHILS % 71.6 % (36.0-66.0); PLATELET COUNT, AUTOMATED 372 10^3/uL (150-450); RED BLOOD COUNT 3.55 10^6/uL (4.30-6.10); WHITE BLOOD COUNT 6.6 10^3/uL (4.0-10.0)
[2018-05-07 05:55] LABS: BLOOD UREA NITROGEN 10 MG/DL (7-18); CALCIUM LEVEL 7.9 MG/DL (8.5-10.1); CARBON DIOXIDE LEVEL 30 MEQ/L (21-32); CHLORIDE LEVEL 101 MEQ/L (98-107); CREATININE FOR GFR 0.91 MG/DL (0.70-1.30); GLOMERULAR FILTRATION RATE > 60.0 (>56); GLUCOSE, FASTING 88 MG/DL (70-100); POTASSIUM SERUM 4.4 MEQ/L (3.5-5.1); SODIUM LEVEL 135 MEQ/L (136-145)
[2018-05-07] MEDS: SLF 3 ML SYR IV SCH ×3 (06:00→21:05)
[2018-05-07 08:00] VITALS: BP 128/73
[2018-05-07] MEDS: LACTOBACILLUS ACIDOPHILUS CAP (BACID) PO SCH ×2 (08:08→17:14)
[2018-05-07] MEDS: ENOXAPARIN 40 MG/0.4 ML SYRINGE (J1650) SC SCH (08:08)
--- NOTE | 2018-05-07 08:09 | REP ---
PA and lateral chest: Comparison is 05/06/2018. The left thoracotomy tube and left pleural space pigtail drainage catheter are unchanged. Effacement of the left costophrenic angle is unchanged. Remainder the lung phillips are clear. Cardiac size is normal. The ever, mediastinum, skeletal structures are unremarkable. Impression: There is no interval change. Electronically Signed by Rizwan Doty MD 05/07/2018 08:01 A
[2018-05-07 12:00] VITALS: BP 122/72
--- NOTE | 2018-05-07 14:42 | IPN ---
DATE: 05/07/2018 NOTE: Mr. King did well overnight with one of his chest tubes clamped. He also had some time yesterday when both were clamped so he could ambulate. Otherwise, denies shortness of breath. No chest pain. His side no longer hurts where his cellulitis was. No nausea or emesis. No other concerns expressed. OBJECTIVE: PHYSICAL EXAMINATION: GENERAL: Mr. King is sitting in the chair in no acute distress. He can complete full sentences. No cough on evaluation. VITAL SIGNS: Temperature 97.7, which is his maximum temperature (t-max). Pulse 93, respiratory rate 18, blood pressure 128/73 with a MAP of 91, SpO2 of 94% on room air. HEENT: Anicteric. Nares patent bilaterally. Moist mucosa. Oropharynx is clear. No lesions. Moist mucosa. NECK: Supple. Without thyromegaly or masses. Trachea is midline. LYMPHS: Without cervical or supraclavicular lymphadenopathy. LUNGS: Symmetric excursion. Good air entry. Diminished breath sounds with dullness over the region at the left base. No wheeze, rhonchi or crackles. Normal I:E. No accessory muscle usage or retractions. CARDIOVASCULAR: Regular rate and rhythm. Normal S1, S2. No murmur, rub or gallop appreciated. ABDOMEN: Positive bowel sounds. Soft, nontender. EXTREMITIES: Warm and well perfused. Without clubbing, cyanosis or edema. Yesterday input and output was 1950 in and 2800 out, making him negative 850, of the output, 0 was chest tube. Thus far today, 460 in and 1000 out making him negative 540 and again no output from the chest tube. LABORATORY DATA: CBC from this morning showed a hemoglobin of 9.6, hematocrit 31.5, platelet count 372,000, white blood cell count 6,600 with a differential of 72% neutrophils, 16% lymphocytes, 9% monocytes. Chemistries showed a sodium of 135, potassium 4.4, chloride 101, bicarbonate 30, anion gap 4, BUN 10, creatinine 0.9, calcium 7.9. I reviewed his chest x-ray, as well as report from earlier this morning. That x-ray showed normal appearing cardiac silhouette and pulmonary vascular shadows. Normal appearing mediastinal and hilar regions. There remains left lower lobe opacity that is unchanged. Two chest tubes in place. IMPRESSION: 1. Empyema, Streptococcus intermedius. Status post thoracostomy and multiple leaks with a placement of a second chest tube on 05/03/2018 and an air fluid level. There has been no significant drainage of the chest tubes over the past 2 days. 2. Bronchopleural fistula. No evidence of bronchopleural fistula in over 48 hours. 3. Hypertension. 4. Gastroesophageal reflux disease (GERD). 5. Infectious disease, on meropenem. RECOMMENDATIONS: 1. We will discontinue the older chest tube. 2. Once that is done, we will place the remaining pigtail chest tube on water seal. 3. The plan is that if he does well overnight on water seal with the other chest tube, we will clamp it. I want to clamp it for 24 hours given his bronchopleural fistula. If he does well at that time, we will discontinue the chest tube and a decision will be made at that time as to whether or not to change him to Augmentin or consider his antibiotics complete, as he will have had about 5 days of meropenem.
[2018-05-07 16:00] VITALS: BP 108/69
[2018-05-07 20:00] VITALS: BP 122/69
[2018-05-07] MEDS: OMEPRAZOLE 20 MG CAP PO SCH (20:06)
[2018-05-08] VITALS (7 sets, daily range): BP systolic 109–136; BP diastolic 69–83
[2018-05-08] MEDS: MEROPENEM INJ 1 GM in APPROPRIATE DILUENT 1 EA IV SCH ×2 (01:00→09:49)
[2018-05-08] MEDS: SLF 3 ML SYR IV SCH (05:03)
[2018-05-08 05:33] LABS: BASO % 0.5 % (0.0-1.0); EOS # 0.1 10^3/uL (0.0-0.50); EOS % 1.9 % (0.0-3.0); HEMATOCRIT 31.6 % (42.0-52.0); HEMOGLOBIN 9.4 g/dl (13.5-17.5); LYMPH # 1.1 10^3/uL (1.5-4.5); LYMPH % 17.8 % (24.0-44.0); MEAN CORPUSCULAR HGB CONC 29.7 g/dl (32.0-36.5); MEAN CORPUSCULAR VOLUME 87.5 fl (80.0-96.0); MONO # 0.6 10^3/uL (0.0-0.8); NEUTROPHILS # 4.4 10^3/uL (1.8-7.7); NEUTROPHILS % 69.8 % (36.0-66.0); PLATELET COUNT, AUTOMATED 390 10^3/uL (150-450); RED BLOOD COUNT 3.61 10^6/uL (4.30-6.10); WHITE BLOOD COUNT 6.3 10^3/uL (4.0-10.0)
[2018-05-08 05:54] LABS: BLOOD UREA NITROGEN 11 MG/DL (7-18); CALCIUM LEVEL 8.1 MG/DL (8.5-10.1); CARBON DIOXIDE LEVEL 30 MEQ/L (21-32); CHLORIDE LEVEL 102 MEQ/L (98-107); CREATININE FOR GFR 0.89 MG/DL (0.70-1.30); GLOMERULAR FILTRATION RATE > 60.0 (>56); GLUCOSE, FASTING 94 MG/DL (70-100); POTASSIUM SERUM 4.4 MEQ/L (3.5-5.1); SODIUM LEVEL 136 MEQ/L (136-145)
[2018-05-08] MEDS: ENOXAPARIN 40 MG/0.4 ML SYRINGE (J1650) SC SCH (08:05)
[2018-05-08] MEDS: LACTOBACILLUS ACIDOPHILUS CAP (BACID) PO SCH ×2 (08:05→17:20)
--- NOTE | 2018-05-08 08:05 | REP ---
PA and lateral chest: Comparison is 05/07/2018. The left thoracotomy tube has been very moved. . The left pigtail pleural drainage catheter is unchanged. Effacement of the left costophrenic angle is unchanged. Remainder the lung phillips are clear. Cardiac size is normal. The ever, mediastinum, skeletal structures are unremarkable. Impression: The left thoracotomy tube has been removed. The left pleural pigtail drainage catheter is unchanged. Effacement of the costophrenic angle is unchanged. Electronically Signed by Rizwan Doty MD 05/08/2018 07:57 A
--- NOTE | 2018-05-08 16:43 | IPN ---
DATE: 05/08/2018 NOTE: Mr. King continues to feel well. He has occasional cough but no significant sputum production. No chest pain or pressure. No shortness of breath. No nausea or emesis. No abdominal pain. He is ambulating around without difficulty. OBJECTIVE: PHYSICAL EXAMINATION: GENERAL: Mr. King is sitting in a chair in no acute distress. He can complete full sentences. No cough on evaluation. VITAL SIGNS: Temperature 97.6 with a maximum temperature (T-max) of 98.8, pulse 83, respiratory rate 16, blood pressure 115/76 with a mean arterial pressure (MAP) of 89, SpO2 95% on room air. HEENT: Anicteric, pupils equal and reactive to light. Nares: Patent bilaterally. Oropharynx: Clear, moist mucosa. NECK: Supple, without thyromegaly or masses, trachea is midline. LYMPHATICS: Without cervical or supraclavicular lymphadenopathy. LUNGS: Symmetric excursion, good air entry. No significant rhonchi, wheeze, or crackle. Decreased breath sounds at the left base with dullness to percussion at the same region. Normal inspiratory to expiratory (I:E). No accessory muscle usage or retractions. CARDIOVASCULAR: Regular rate and rhythm with a normal S1, S2, no murmur, rub, or gallop appreciated. ABDOMEN: Positive bowel sounds, soft, nondistended. EXTREMITIES: Without clubbing, cyanosis, or edema. Palpable pedal pulses bilaterally. LABORATORY DATA: CBC showed a hemoglobin of 9.4, hematocrit 31.6, platelet count 390,000, white blood cell count 6300 with a differential of 70% neutrophils, 18% lymphocytes, and 9% monocytes. Chemistry shows sodium 136, potassium 4.4, chloride 102, bicarbonate 30, anion gap 4, BUN 11, creatinine 0.9, glucose 94, and calcium 8.1. I reviewed his chest x-ray as well as the report from earlier today. That x-ray showed normal appearing cardiac silhouette and pulmonary vascular shadows. Normal appearing mediastinal and hilar regions. No acute infiltrates. There remains an effacement of the left hemidiaphragm with a chest tube in place. IMPRESSION: 1. Empyema from Streptococcus intermedius. Status post thoracostomy and multiple doses of lytics. He required a second chest tube on 05/03/2018 because of an air fluid level. There was no significant drainage from either tube after that placement. His original tube was discontinued yesterday and his current pigtail tube is on water seal. No evidence of air leak. 2. Bronchopleural fistula. No evidence of bronchopleural fistula in over 72 hours. 3. Hypertension. 4. Gastroesophageal reflux disease (GERD). 5. Infectious disease, on meropenem. RECOMMENDATIONS: 1. Will clamp the pigtail catheter. 2. Will discontinue meropenem and place him on Augmentin with the plan of continuing that for perhaps five more days. 3. If there is no evidence of reaccumulation of air after clamping the chest tube overnight, the chest tube will be discontinued and he will be discharged tomorrow.
[2018-05-08] MEDS: OMEPRAZOLE 20 MG CAP PO SCH (20:14)
[2018-05-08] MEDS: AUGMENTIN 875 MG TAB GT SCH (20:14)
[2018-05-09 04:00] VITALS: BP 114/71
[2018-05-09 05:15] LABS: BASO % 0.5 % (0.0-1.0); EOS # 0.2 10^3/uL (0.0-0.50); EOS % 3.5 % (0.0-3.0); HEMOGLOBIN 9.4 g/dl (13.5-17.5); LYMPH # 1.2 10^3/uL (1.5-4.5); LYMPH % 20.7 % (24.0-44.0); MEAN CORPUSCULAR HEMOGLOBIN 26.3 pg (27.0-33.0); MEAN CORPUSCULAR HGB CONC 30.3 g/dl (32.0-36.5); MEAN CORPUSCULAR VOLUME 86.6 fl (80.0-96.0); MONO # 0.6 10^3/uL (0.0-0.8); MONO % 9.8 % (0.0-5.0); NEUTROPHILS # 3.9 10^3/uL (1.8-7.7); PLATELET COUNT, AUTOMATED 369 10^3/uL (150-450); RED BLOOD COUNT 3.58 10^6/uL (4.30-6.10)
[2018-05-09 05:39] LABS: BLOOD UREA NITROGEN 13 MG/DL (7-18); CALCIUM LEVEL 8.3 MG/DL (8.5-10.1); CARBON DIOXIDE LEVEL 31 MEQ/L (21-32); CHLORIDE LEVEL 101 MEQ/L (98-107); CREATININE FOR GFR 0.92 MG/DL (0.70-1.30); GLOMERULAR FILTRATION RATE > 60.0 (>56); GLUCOSE, FASTING 92 MG/DL (70-100); POTASSIUM SERUM 4.6 MEQ/L (3.5-5.1); SODIUM LEVEL 135 MEQ/L (136-145)
[2018-05-09] MEDS: LACTOBACILLUS ACIDOPHILUS CAP (BACID) PO SCH (07:48)
[2018-05-09 08:00] VITALS: BP 143/67
--- NOTE | 2018-05-09 08:18 | REP ---
Clinical: Follow up empyema Comparison: Findings: mediastinum and cardiac silhouette are within normal limits. Right hemithorax is clear. Left sided pleuroparenchymal changes and left basilar chest tube are stable. No pneumothorax. Skeletal structures are intact. Impression: No significant change from prior examination. Electronically Signed by Ramy Sainz MD 05/09/2018 08:09 A
[2018-05-09] MEDS: AUGMENTIN 875 MG TAB GT SCH (08:44)
[2018-05-09] MEDS: ENOXAPARIN 40 MG/0.4 ML SYRINGE (J1650) SC SCH (08:46)
[2018-05-09] MEDS ORDERED: AMOX875T2 PO (10:32)
[2018-05-09] MEDS ORDERED: PNEUMOCOCCAL VACCINE 0.5ML SYRINGE(90732) PNEUMOVAX 23 IM ONE (12:00)
--- NOTE | 2018-05-09 17:06 | DSES ---
DATE OF ADMISSION: 04/25/2018 DATE OF DISCHARGE: 05/09/2018 CONSULTANTS: Dr. Elkins, thoracic surgery. PROCEDURES: 1. Left-sided chest tube placement 04/25/2018. 2. Pigtail catheter placement 05/03/2018. DISCHARGE DIAGNOSES: 1. Left-sided empyema, Streptococcus intermedius. 2. Left-sided pneumonia. 3. Bronchopleural fistula, resolved. OTHER DIAGNOSES: 1. Hypertension. 2. Gastroesophageal reflux disease (GERD). HOSPITAL COURSE: Mr. King was admitted on 04/25/2018 after presenting to the emergency department with shortness of breath. He had recently been treated for pneumonia and had had symptoms since around [place] time with his predominant symptom being a cough. Upon admission, he was found to have a left-sided pleural effusion. A chest tube was placed with the fluid being consistent with an empyema and grew Streptococcus intermedius. He had several regions of loculations and received several doses of TPA. On 05/03/2018, he was found to have a bronchopleural fistula and a pigtail catheter was placed into an air fluid level. The drainage from that chest tube did not grow any organisms. After placement of the second chest tube, his bronchopleural fistula resolved. His initial chest tube was discontinued on 05/07/2018. His pigtail catheter was changed to waterseal at that time. When he had no drainage on 05/08/2018, he was clamped for 24 hours. With clamping, there was no evidence of an ongoing air leak and his chest tube was discontinued today. Throughout the course of his hospitalization, he has been treated with various antibiotics. Initially he was treated with vancomycin and Zosyn. Later, after cultures became available, he was changed to Streptococcus intermedius. When he had the fever spike and required a second chest tube on 05/03/2018, he was changed to meropenem. Finally, on the 05/08/2017, as his IV had infiltrated, and he was doing well, he was changed to Augmentin, which he was discharged on. At the time of discharge, his lung examination showed minimal decreased breath sounds at the left base but was otherwise normal. His cardiac, his abdominal, and his extremity examination was normal. He was afebrile and had a WBC count of 6000 with a differential of 65% neutrophils, 21% lymphocytes, and 10% monocytes. His electrolytes were normal. DISPOSITION: Home. DISCHARGE MEDICATIONS: - Aleve 220 mcg by mouth every 6 hours as needed - aspirin 81 mg by mouth daily - omeprazole 40 mg by mouth daily - Augmentin 875-125 by mouth twice a day times five days FOLLOWUP: The patient is to followup with either Dr. Barrett or RICKEY Urena in 1 week with a two-view chest x-ray.
== END 2018-05-09 11:41 | disposition home or self-care (01) | DRG 137 ==
LOC: M ED 09:38 → M ED INP 12:59 → M PCU 14:40
PROVIDERS: ADMIT Internal Medicine Pulmonary Disease; ATTEND Internal Medicine Pulmonary Disease
PROC: 0W9B00Z Drainage of Left Pleural Cavity with Drainage Device, Open Approach (ICD-10-PCS; principal; 2018-04-25)
PROC: 3E0L4GC Introduction of Other Therapeutic Substance into Pleural Cavity, Percutaneous Endoscopic Approach (ICD-10-PCS; 2018-04-26)
PROC: 0W9B30Z Drainage of Left Pleural Cavity with Drainage Device, Percutaneous Approach (ICD-10-PCS; 2018-05-03)
DX: J86.0 Pyothorax with fistula (principal); J18.1 Lobar pneumonia, unspecified organism; K21.9 Gastro-esophageal reflux disease without esophagitis; B95.5 Unspecified streptococcus as the cause of diseases classified elsewhere; E66.9 Obesity, unspecified; L03.313 Cellulitis of chest wall; Z96.642 Presence of left artificial hip joint; Z87.891 Personal history of nicotine dependence; Z79.82 Long term (current) use of aspirin; Z79.899 Other long term (current) drug therapy; Z68.30 Body mass index [BMI] 30.0-30.9, adult

== ENCOUNTER → 2018-05-16 | Outpatient (CLI) | payer BC ==
[~2018-05-16] MED LIST changes: +ALEV220C2 PO; +AMOX875T2 PO; +ASPI1TAB PO; +LEVO750T13 PO
--- NOTE | 2018-05-16 13:58 | REP ---
CHEST X-RAY: Two views. HISTORY: Pneumonia. COMPARISON STUDY: May 09, 2018. FINDINGS: The left pleural drainage catheter has been pulled in the interval since the May 09, 2018 study. There is pleuroparenchymal opacity in the left base and pleural thickening along the left lateral chest wall again noted essentially unchanged with some area adjacent parenchymal fibrosis. On lateral radiograph, there is blunting of the posterior pleural angle on the left and some fissural thickening is noted in the major fissure. These findings are unchanged. No new infiltrate is seen. Electronically Signed by Spencer Cardenas MD 05/16/2018 02:28 P
== END ==
LOC: M SMT 11:09
PROVIDERS: ATTEND Internal Medicine Pulmonary Disease
DX: Z87.09 Personal history of other diseases of the respiratory system (principal)

== ENCOUNTER → 2018-06-24 | Outpatient (CLI) | payer BC ==
[~2018-06-24] MED LIST changes: -ASPI1TAB PO; +ASPI81TA26 PO
[2018-06-24 14:25] LABS: BASO # 0.1 10^3/uL (0.0-0.2); BASO % 0.8 % (0.0-1.0); EOS # 0.2 10^3/uL (0.0-0.50); EOS % 3.7 % (0.0-3.0); HEMATOCRIT 41.4 % (42.0-52.0); HEMOGLOBIN 13.2 g/dl (13.5-17.5); LYMPH # 2.3 10^3/uL (1.5-4.5); LYMPH % 39.2 % (24.0-44.0); MEAN CORPUSCULAR HEMOGLOBIN 28.4 pg (27.0-33.0); MEAN CORPUSCULAR HGB CONC 31.9 g/dl (32.0-36.5); MONO # 0.5 10^3/uL (0.0-0.8); MONO % 7.6 % (0.0-5.0); NEUTROPHILS # 2.9 10^3/uL (1.8-7.7); NEUTROPHILS % 48.5 % (36.0-66.0); PLATELET COUNT, AUTOMATED 227 10^3/uL (150-450); RED BLOOD COUNT 4.65 10^6/uL (4.30-6.10); WHITE BLOOD COUNT 5.9 10^3/uL (4.0-10.0)
[2018-06-24 15:02] LABS: ALBUMIN 3.7 GM/DL (3.2-5.2); ALT/SGPT 28 U/L (12-78); BILIRUBIN,TOTAL 0.3 MG/DL (0.2-1.0); BLOOD UREA NITROGEN 18 MG/DL (7-18); CALCIUM LEVEL 8.8 MG/DL (8.5-10.1); CARBON DIOXIDE LEVEL 30 MEQ/L (21-32); CHLORIDE LEVEL 107 MEQ/L (98-107); CHOLESTEROL LEVEL 182 MG/DL (<200); CHOLESTEROL RISK RATIO 3.714 (<5); CREATININE FOR GFR 1.12 MG/DL (0.70-1.30); GLOMERULAR FILTRATION RATE > 60.0 (>56); GLUCOSE, FASTING 85 MG/DL (70-100); HDL CHOLESTEROL 49 MG/DL (>40); LDL CHOLESTEROL 106 MG/DL (<100); NON-HDL-C 133 MG/DL; POTASSIUM SERUM 4.3 MEQ/L (3.5-5.1); SODIUM LEVEL 140 MEQ/L (136-145); TOTAL PROTEIN 7.7 GM/DL (6.4-8.2); TRIGLYCERIDES LEVEL 133 MG/DL (<150)
--- NOTE | 2018-06-24 16:05 | REP ---
REASON FOR EXAMINATION: Followup hydropneumothorax. COMPARISON EXAMINATION: Multiple, the latest 05/05/2018. The lack of intravenous contrast decreases the sensitivity of the exam. The mediastinum and pulmonary ever are essentially unchanged. The left pleural effusion seen previously appears to have resolved and instead there is heavy asymmetric pleural thickening. There is no pericardial effusion. The imaged upper abdomen is unchanged. The imaged osseous structures are unchanged. The pericardial effusion seen previously has resolved. The intrathoracic drainage tubes have been removed. Evaluation of the lung phillips again show asymmetric pleural thickening with parenchymal density in the left lower lobe, however, this has decreased in size. No new abnormal parenchymal opacities have developed. IMPRESSION:There has been some improvement as described above. Continued surveillance is recommended. Electronically Signed by Paco Mansfield DO 06/24/2018 04:39 P
[2018-06-25 16:03] LABS: PSA TOTAL 2.1 ng/mL (0.0-4.0)
== END ==
LOC: M LAB 12:59
PROVIDERS: ATTEND Physician Assistant
DX: R91.8 Other nonspecific abnormal finding of lung field (principal)

== ENCOUNTER → 2018-10-14 | Outpatient (CLI) | payer BC ==
[~2018-10-14] MED LIST changes: +BISO5TAB14 PO; -BISO5TAB5 PO; -OMEP40CA2 PO; +OMEP40CA97 PO; +SUCR1ORA PO; -SUCR1SUS PO
--- NOTE | 2018-10-14 14:50 | REP ---
CT of the chest without IV contrast: Comparison is 06/24/2018. The previous left pleural effusion has resolved. The previous focal density inferolaterally in the left hemithorax has significantly decreased and now appears as curvilinear parenchymal scarring. The remainder of the left lung is clear and unchanged. Right lung is clear and unchanged. There is no subcutaneous emphysema along the left lateral chest wall. There is no mediastinal lymph node enlargement. No axillary lymph node enlargement. In the absence of IV contrast the study is insensitive for hilar lymph node enlargement. The thoracic aorta is. Cardiac size is normal. There is no pericardial effusion. Upper abdomen: The visualized hepatic parenchyma, gallbladder, pancreas, spleen, adrenals and renal upper poles are unremarkable. Impression: Significant improvement in the left lower lobe pleural effusion and left lower lobe lung parenchymal density as discussed. Electronically Signed by Rizwan Doty MD 10/14/2018 02:41 P
== END ==
LOC: M RAD 14:00
PROVIDERS: ATTEND Physician Assistant
DX: R91.8 Other nonspecific abnormal finding of lung field (principal)

== ENCOUNTER → 2019-10-16 | Outpatient (CLI) | payer BC ==
[~2019-10-16] MED LIST changes: -AMLO10TA5 PO; +AMLO1TAB25 PO; -ASPI81TA85 PO; +ASPI81TA86 PO
--- NOTE | 2019-11-17 10:32 | REP ---
LOW DOSE LUNG SCREENING CT STUDY: COMPARISON: 10/14/18 FINDINGS: Areas of linear scarring and fibroatelectatic change primarily involving the left hemithorax are identified and slightly more prominent than prior examination - specifically the linear scarring in the anterior left upper lobe. A few scattered noncalcified nodules are now identified which are new as compared to prior examination and measure up to approximately 5 mm. No consolidation, effusion or pneumothorax. The tracheobronchial tree is patent. A stable moderate hiatal hernia is again noted. Surrounding musculoskeletal structures demonstrate a few scattered sclerotic lesions within the thoracic vertebral bodies, likely representing age related degenerative changes. IMPRESSION: 1. Areas of scarring and fibroatelectatic changes primarily involving the left hemithorax slightly more prominent that prior examination. 2. New scattered noncalcified nodular densities up to 5 mm (left greater than right). Based on set criteria, [address] follow up examination may be warranted. MTDD
== END ==
LOC: M RAD 12:20
PROVIDERS: ATTEND Physician Assistant
DX: Z87.891 Personal history of nicotine dependence (principal); Z12.2 Encounter for screening for malignant neoplasm of respiratory organs

== ENCOUNTER → 2020-06-21 | Outpatient (CLI) | payer BC ==
--- NOTE | 2020-06-21 14:35 | REP ---
INDICATION: ABN FINDING OF LUNG. The patient had empyema on the left April 25, 2018. COMPARISON: Comparison is made with multiple prior studies dating back to April 25, 2018. The most recent prior exam is from October 14, 2018. New noncalcified pulmonary nodules were noted on the most recent prior study and six-month follow-up was recommended.. TECHNIQUE: Helical scanning is acquired. 3 mm axial images are generated. Coronal and sagittal MPR and coronal MIP images are generated. FINDINGS: Marketing Team Lead view is unremarkable. There is a linear area of fibrosis in the left lower lobe laterally which is much improved from the infiltrate seen in this location on the June 24, 2018 study. The fibrotic changes are yet again slightly improved when compared with the more recent exam of October 14, 2018. No pleural effusion is seen. Hiatal hernia is again noted. No hilar or mediastinal mass or adenopathy is observed. No evidence of pericardial effusion. There is fatty infiltration of the liver. Normal adrenal glands are seen. In the lung parenchyma, today's study demonstrates multiple new irregular non solid nodular densities many of which are distributed in a tree-in-bud distribution in the left lower lobe, left upper lobe. These findings are most compatible with inflammatory disease or granulomatous disease. The appear in again more numerous when compared with the October 16, 2019 study. There are areas of slight bronchial wall thickening question bronchitis in the left lower lobe and left upper lobe. On today's CT study, the largest nodular opacity is in the left lower lobe, pleural based measuring 1.4 cm in greatest diameter. IMPRESSION: Areas of chronic pleuroparenchymal scarring. Progressive now numerous peribronchovascular irregular predominantly subcentimeter pulmonary parenchymal nodules, left lower lobe and left upper lobe. These are more numerous than on most recent study of October 16, 2019. Mild bronchial wall thickening question bronchitis. <Electronically signed by Shiv Cardenas > 06/21/20 [id number]
== END ==
LOC: M RAD 13:50
PROVIDERS: ATTEND Physician Assistant
DX: R91.8 Other nonspecific abnormal finding of lung field (principal)

== ENCOUNTER → 2020-10-07 | Outpatient (CLI) | payer BC ==
[~2020-10-07] MED LIST changes: +OMEP40CA4 PO; -OMEP40CA97 PO
--- NOTE | 2020-10-07 23:24 | REP ---
INDICATION: ABNORMAL FINDING OF LUNG FIELD COMPARISON: 06/21/2020, 10/16/2019, 10/14/2018 TECHNIQUE: Axial noncontrast images from the thoracic inlet to the upper abdomen with coronal and sagittal reformations. This CT examination was performed using the following dose reduction techniques: Automated exposure control, adjustment of mA and/or kv according to the patient's size, and use of iterative reconstruction technique. FINDINGS: The lung phillips are well aerated and demonstrate mild stable emphysematous changes and stable pleuroparenchymal scarring (left greater than right). Previously noted primarily left-sided peribronchovascular part solid nodular densities likely representing scattered septic emboli have resolved. No acute suspicious consolidation, nodule or mass lesion identified. No effusion. No pneumothorax. Tracheobronchial tree is patent. Mediastinum demonstrates moderate/large stable hiatal hernia. Minimal stable atherosclerotic changes to the thoracic aorta again noted. No cardiomegaly or pericardial effusion. No significant adenopathy. Surrounding musculoskeletal structures intact. Bilateral adrenal glands are normal. IMPRESSION: 1. Chronic stable pleuroparenchymal changes and mild emphysematous changes again noted. 2. Previously identified left-sided part solid nodular densities suggesting septic emboli have resolved. 3. No acute mediastinal or pleuroparenchymal process appreciated. <Electronically signed by Ramy Sainz > 10/07/20 [id number]
== END ==
LOC: M PLAIMG 12:41
PROVIDERS: ATTEND Physician Assistant
DX: R91.8 Other nonspecific abnormal finding of lung field (principal)

== ENCOUNTER → 2021-10-08 | Outpatient (CLI) | payer BC ==
[~2021-10-08] MED LIST changes: +LEVO1TAB40 PO; -LEVO750T13 PO
== END ==
LOC: M RAD 14:39
PROVIDERS: ATTEND Physician Assistant
DX: Z12.2 Encounter for screening for malignant neoplasm of respiratory organs (principal); Z87.891 Personal history of nicotine dependence

== ENCOUNTER → 2022-10-21 | Outpatient (CLI) | payer BC | LOC: M RAD 15:44 | PROVIDERS: ATTEND Physician Assistant | DX: Z87.891 Personal history of nicotine dependence (principal) ==

== ENCOUNTER → 2023-10-29 | Outpatient (CLI) | payer BC | LOC: M RAD 12:35 | PROVIDERS: ATTEND Physician Assistant | DX: R91.8 Other nonspecific abnormal finding of lung field (principal); Z87.891 Personal history of nicotine dependence ==

== ENCOUNTER → 2024-12-11 | Outpatient (CLI) | payer BC | LOC: M RAD 10:12 | PROVIDERS: ATTEND Physician Assistant | DX: Z12.2 Encounter for screening for malignant neoplasm of respiratory organs (principal); Z87.891 Personal history of nicotine dependence; R91.1 Solitary pulmonary nodule; K44.9 Diaphragmatic hernia without obstruction or gangrene ==